=== PATIENT | male | born 1950 | race Caucasian/White ===

== ENCOUNTER → 2016-07-26 | Outpatient (CLI) | payer OTHER ==
[~2016-07-26] MED LIST: ASPCH81X PO; CHOL400C10 PO; CLOP1TAB15 PO; CLX20 PO; FLUT0.15 NAE; LISI-461 PO; LISI40TA PO; LPRUNK PO; MAGN250T22 PO; MULTCHW PO; MXZUNK PO; OMEG10007 PO; POTA10CA28 PO; SIMV20TA2 PO; SIMVASTATIN PO; TAMS0.4C38 PO; UNABLE; VITAMIN D PO
[2016-07-31 10:25] LABS: O&P SOURCE OTHER-TOTAL
== END | disposition home or self-care (01) ==
LOC: C.LAB 09:21
PROVIDERS: ATTEND Internal Medicine
DX: R19.7 Diarrhea, unspecified (principal)

== ENCOUNTER → 2016-08-29 | Outpatient (CLI) | payer OTHER ==
--- NOTE | 2016-08-29 08:48 | DIAGNOSTIC IMAGING REPORT ---
MRI OF THE BRAIN WITHOUT CONTRAST CLINICAL HISTORY: Lightheadedness. Decreased hearing. History of cerebrovascular accident. COMPARISON STUDY: MRI of the brain July 21, 2012. TECHNIQUE: Utilizing a 1.5 Ashlie magnet and dedicated coil, multiplanar, multiecho imaging of the brain was performed without IV contrast. FINDINGS: There are no areas of restricted diffusion. No acute intracranial hemorrhage, midline shift or mass effect is present. Moderate atrophy is noted. Numerous white matter T2 hyperintense foci have minimally progressed since prior exam and suggest small vessel disease. The basilar cisterns are patent. There are no extra-axial collections. Flow-voids for the major intracranial vessels are present. There is mild mucosal thickening of the left maxillary sinus. No intracranial masses are identified on this unenhanced exam. IMPRESSION: 1. No acute intracranial findings. 2. Moderate small vessel disease and cerebral atrophy. 3. No intracranial mass identified on unenhanced exam. Electronically signed by: Jr Chavez M.D. 08/29/2016 8:46 AM Dictated Date/Time: 08/29/2016 8:40 AM
== END | disposition home or self-care (01) ==
LOC: C.MRI 08:02
PROVIDERS: ATTEND Internal Medicine
DX: I67.9 Cerebrovascular disease, unspecified (principal); H91.90 Unspecified hearing loss, unspecified ear; R42 Dizziness and giddiness; R90.89 Other abnormal findings on diagnostic imaging of central nervous system; R41.89 Other symptoms and signs involving cognitive functions and awareness

== ENCOUNTER → 2016-11-11 | Outpatient (CLI) | payer OTHER ==
[2016-11-11 09:35] LABS: BASO % 0.3 %; BASO ABS # 0.02 K/uL (0-0.2); COMPLETE YES; EOS % 2.8 %; HEMATOCRIT 43.9 % (42-52); IG% 0.3 %; LYMPH ABS # 1.57 K/uL (1.2-3.4); MEAN CELL VOLUME 86.4 fL (80-100); MEAN CORPUSCULAR HEMOGLOBIN 29.5 pg (25-34); MEAN CORPUSCULAR HGB CONC 34.2 g/dl (32-36); MEAN PLATELET VOLUME 10.5 fL (7.4-10.4); MONO % 6.9 %; NEUT % 67.7 %; PLATELET COUNT 157 K/uL (130-400); RED BLOOD COUNT 5.08 M/uL (4.7-6.1); WHITE BLOOD COUNT 7.13 K/uL (4.8-10.8)
[2016-11-11 10:09] LABS: ALB/GLOB RATIO 1.1 (0.9-2); ALKALINE PHOSPHATASE 68 U/L (45-117); ALT/SGPT 28 U/L (12-78); AST/SGOT 19 U/L (15-37); BLOOD UREA NITROGEN 17 mg/dl (7-18); BUN/CREATININE RATIO 15.3 (10-20); CARBON DIOXIDE 29 mmol/L (21-32); CHLORIDE 108 mmol/L (98-107); CHOLESTEROL 111 mg/dl (0-200); CHOLESTEROL/HDL RATIO 2.9; GLUCOSE 120 mg/dl (70-99); HDL CHOLESTEROL 38 mg/dl; LDL CHOLESTEROL CALCULATED 41 mg/dl; POTASSIUM 3.3 mmol/L (3.5-5.1); SODIUM 145 mmol/L (136-145); TRIGLYCERIDES 160 mg/dl (0-150); VERY LOW DENSITY LIPOPROT CALC 32 mg/dl
[2016-11-11 10:16] LABS: CALCIUM 9.7 mg/dl (8.5-10.1)
[2016-11-11 10:22] LABS: ESTIMATED AVERAGE GLUCOSE 117 mg/dl; HA1C FLAG Normal (Normal)
[2016-11-11 11:09] LABS: RATIO 1465.5 mcg/mg (0-30.0)
== END | disposition home or self-care (01) ==
LOC: C.LAB1850 08:26
PROVIDERS: ATTEND Internal Medicine
DX: E11.9 Type 2 diabetes mellitus without complications (principal); E53.8 Deficiency of other specified B group vitamins; E55.9 Vitamin D deficiency, unspecified; I10 Essential (primary) hypertension; R97.20 Elevated prostate specific antigen [PSA]; N40.1 Benign prostatic hyperplasia with lower urinary tract symptoms

== ENCOUNTER 2017-01-15 09:36 | Emergency (ER) | payer OTHER ==
[~2017-01-15] VITALS: Ht 172.7 cm; Wt 91.0 kg
[~2017-01-15 09:36] MED LIST changes: -ASPCH81X PO; -CHOL400C10 PO; -FLUT0.15 NAE; -LISI40TA PO; -MAGN250T22 PO; -MULTCHW PO; -OMEG10007 PO; -POTA10CA28 PO; -SIMVASTATIN PO; -TAMS0.4C38 PO; -VITAMIN D PO
[2017-01-15 09:45] VITALS: TEMP 36.7; Ht 172.7 cm; Wt 91.0 kg
[2017-01-15 10:23] LABS: URINE APPEARANCE CLEAR (CLEAR); URINE BILIRUBIN NEG (NEG); URINE COLOR YELLOW; URINE NITRITE NEG (NEG); URINE PH 5.5 (4.5-7.5); URINE SPECIFIC GRAVITY 1.016 (1.000-1.030); UROBILINOGEN NEG (NEG); ZZURINE CULT IF INDIC CATH NO
[2017-01-15 10:30] LABS: MANUAL MICROSCOPIC REQUIRED? NO; REVIEW REQ? NO
[2017-01-15] MEDS ORDERED: ASPCH81X PO (11:47)
[2017-01-15] MEDS ORDERED: LISI40TA PO (11:47)
[2017-01-15] MEDS ORDERED: MULTCHW PO (11:47)
[2017-01-15] MEDS ORDERED: TAMS0.4C38 PO (11:47)
[2017-01-15] MEDS ORDERED: OMEG10007 PO (11:47)
[2017-01-15] MEDS ORDERED: POTA10CA28 PO (11:47)
[2017-01-15] MEDS ORDERED: FLUT0.15 NAE (11:47)
[2017-01-15] MEDS ORDERED: MAGN250T22 PO (11:47)
[2017-01-15] MEDS ORDERED: CHOL400C10 PO (11:47)
[2017-01-15 12:00] VITALS: PULSE 78
[2017-01-15 12:58] VITALS: BP 122/78; O2SAT 98
--- NOTE | 2017-01-15 16:51 | EMERGENCY ROOM VISIT NOTE ---
History Report prepared by Marcio: Anika Kuhn Under the Supervision of: Carlos MinorO. First contact with patient: 09:48 Chief Complaint: UNABLE TO VOID Stated Complaint: FULL BLADDER- UNABLE TO URINATE History of Present Illness The patient is a 66 year old male who presents to the Emergency Room with complaints of constant urinary symptoms beginning at 5am today. The patient states that he has been unable to urinate since he woke up this morning. He is complaining of suprapubic abdominal pressure and discomfort. He rates his pain as a 7/10 in severity. The patient was able to urinate last night before he went to bed. He has a history of an enlarged prostate. Pt denies headache, change in vision, fevers, chest pain, shortness of breath, nausea, vomiting, and diarrhea. Source of History: patient Onset: early today Position: other (bladder) Symptom Intensity: 7/10 Quality: pressure Timing: constant Associated Symptoms: No fevers, No headache, No chest pain, No SOB, No nausea, No vomiting, No melena, No diarrhea Review of Systems See HPI for pertinent positives & negatives. A total of 10 systems reviewed and were otherwise negative. Past Medical & Surgical Medical Problems: (1) Benign hypertension (2) Benign prostatic hyperplasia with lower urinary tract symptoms (3) Chronic kidney disease, stage I Family History Diabetes mellitus FH: heart disease Social History Smoking Status: Never Smoker Marital Status: single Occupation Status: employed Current/Historical Medications Scheduled Aspirin (Aspirin Chewable), 81 MG PO DAILY Cholecalciferol (Vitamin D 400), 800 MG PO DAILY Fish Oil ([place]-3), 1 CAP PO DAILY Fluticasone Propionate (Nasal) (Flonase Allergy Relief), 1 SPRAY HILARY DAILY Lisinopril (Zestril), 40 MG PO DAILY Magnesium Oxide (Magnesium), 1 TAB PO DAILY Multiple Vitamins W/ Minerals (Centrum Silver), 1 TAB PO DAILY Potassium Chloride (Micro-K Ext Rel), 10 MEQ PO DAILY Tamsulosin Hcl (Flomax), 0.4 MG PO BID Allergies Coded Allergies: Sulfa Drugs (Verified Allergy, Unknown, 01/15/17) Metformin (Unverified Adverse Reaction, Unknown, "GIVES ME GAS", 01/15/17) Physical Exam Vital Signs Date Time Temp Pulse Resp B/P (MAP) Pulse Ox O2 Delivery O2 Flow Rate FiO2 8/24/17 12:58 20 122/78 98 01/15/17 12:00 78 18 124/76 99 Room Air 01/15/17 11:00 72 20 120/78 99 Room Air 01/15/17 09:45 36.7 84 20 176/108 Room Air Physical Exam GENERAL: alert, laying in bed, disheveled appearing, well nourished, moderate distress, non-toxic, holding lower abdomen EYE EXAM: normal conjunctiva OROPHARYNX: no exudate, no erythema, lips, buccal mucosa, and tongue normal and mucous membranes are moist NECK: supple, no nuchal rigidity, no adenopathy, non-tender LUNGS: Clear to auscultation. Normal chest wall mechanics HEART: no murmurs, S1 normal and S2 normal ABDOMEN: abdomen soft, fullness in suprapubic region/minimal tenderness, normo- active bowel sounds, no masses, no rebound or guarding. Old midline abdominal incision. SKIN: no rashes and no bruising UPPER EXTREMITIES: upper extremities are grossly normal. LOWER EXTREMITIES: No pitting edema. NEURO EXAM: Normal sensorium, cranial nerves II-XII grossly intact, normal speech, no gross weakness of arms, no gross weakness of legs. Medical Decision & Procedures Laboratory Results Test 01/15/17 10:05 Urine Color YELLOW Urine Appearance CLEAR (CLEAR) Urine pH 5.5 (4.5-7.5) Urine Specific [place] 1.016 (1.000-1.030) Urine Protein 3+ (NEG) Urine Glucose (UA) NEG (NEG) Urine Ketones NEG (NEG) Urine Occult Blood 2+ (NEG) Urine Nitrite NEG (NEG) Urine Bilirubin NEG (NEG) Urine Urobilinogen NEG (NEG) Urine Leukocyte Esterase NEG (NEG) Urine WBC (Auto) 1-5 /hpf (0-5) Urine RBC (Auto) 10-30 /hpf (0-4) Urine Hyaline Casts (Auto) 1-5 /lpf (0-5) Urine Epithelial Cells (Auto) 5-10 /lpf (0-5) Urine Bacteria (Auto) NEG (NEG) Laboratory results per my review. ED Course ED COURSE: Vital signs were reviewed and showed hypertension. The patients medical record was reviewed The above diagnostic studies were performed and reviewed. ED treatments and interventions as stated above. 0948: The patient was evaluated in room C6. A complete history and physical examination was performed. 1112: I reassessed the patient. He has had 1400 mls of urine drained and feels back to his baseline. 1220: Upon reevaluation, the patient is resting comfortably. I discussed my findings with the patient and he understands and agrees with the treatment plan. Based on the patients age, coexisting illnesses, exam and lab findings the decision to treat as an outpatient was made. The patient remained stable while under my care. The patient appeared well at the time of discharge. 1223: I spoke with Lupe Vivar PA-C of urology. We discussed the patient's case and she is in agreement with the treatment plan and will follow-up in the office as an outpatient. Medical Decision Differential diagnoses includes but is not limited to gastritis, peptic ulcer disease, GERD, gallbladder disease, pancreatitis, small bowel obstruction, acute coronary syndrome, pericarditis, ischemic bowel, irritable bowel disease, irritable bowel syndrome, appendicitis, diverticulitis, malignancy, hernia, urinary tract infection, torsion, perforation, trauma, infectious. Patient is a 66-year-old male who presents the ER with inability to void for the past several hours. He has had this intermittently before and generally resolves with walking. Bladder scan shows a full bladder. Arroyo was inserted and 1400 MLS was removed in a stepwise fashion. UA was negative. Patient was discharged with Arroyo in place at his baseline feeling significantly better. Discussed with urology and Lupe Vivar will follow up on him. Discussed with Pt concerning signs and symptoms to watch out for. Pt was instructed to follow up with their PCP and discussed with the patient their option to return to the ED at anytime for persistent or worsening symptoms. The appropriate anticipatory guidance and out-patient management, including indications for return to the emergency department, were explained at length to the patient and understood. Medication Reconcilliation Current Medication List: was personally reviewed by me Blood Pressure Screening Patient's blood pressure: Elevated blood pressure Blood pressure disposition: Elevated BP felt to be situational Consults Time Called: 1219 Consulting Physician: Lupe Vivar PA-C Returned Call: 1223 I spoke with Lupe Vivar PA-C of urology. We discussed the patient's case and she is in agreement with the treatment plan and will follow-up in the office as an outpatient. Impression Primary Impression: Urinary retention Scribe Attestation The scribe's documentation has been prepared under my direction and personally reviewed by me in its entirety. I confirm that the note above accurately reflects all work, treatment, procedures, and medical decision making performed by me. Departure Information Dispostion Home / Self-Care Referrals RV. Arana MD (PCP) Joel Farah M.D. Forms HOME CARE DOCUMENTATION FORM, IMPORTANT VISIT INFORMATION, WORK / SCHOOL INSTRUCTIONS Patient Instructions ED Retention Urinary Male, My [facility] Additional Instructions Please follow up with your primary care doctor or if you are a student, [facility] with in the next 24 hours. Any worsening of your symptoms, please return to the ED immediately. This includes any fevers greater than 100.4, recurrence of pain, unable to void, not draining catheter or any other concerning signs or symptoms from your standpoint. You were found to have a blood pressure greater than 120 systolic over 90 diastolic. Due to the new Medicare guidelines, we are now recommending that you follow up with your primary care doctor in regards to this elevated blood pressure. Please follow up with urology within the next 3 days. He should also follow with your primary care doctor within 3 days as well.
[2017-02-02] MEDS ORDERED: VITAMIN D PO (09:06)
[2017-02-02] MEDS ORDERED: SIMVASTATIN PO (09:06)
== END 2017-01-15 13:05 | disposition home or self-care (01) ==
LOC: C.EDB 09:37 → C.EDC 13:05
DX: N40.1 Benign prostatic hyperplasia with lower urinary tract symptoms (principal); R33.8 Other retention of urine; N18.1 Chronic kidney disease, stage 1; I12.9 Hypertensive chronic kidney disease with stage 1 through stage 4 chronic kidney disease, or unspecified chronic kidney disease; Z83.3 Family history of diabetes mellitus; Z79.82 Long term (current) use of aspirin; Z79.899 Other long term (current) drug therapy

== ENCOUNTER → 2017-02-03 | Outpatient (CLI) | payer OTHER ==
[~2017-02-03] MED LIST changes: +ASPCH81X PO; -CLOP1TAB15 PO; -CLX20 PO; +FLUT0.15 NAE; -LISI-461 PO; +LISI40TA PO; -LPRUNK PO; +MAGN250T22 PO; +MULTCHW PO; -MXZUNK PO; +OMEG10007 PO; +POTA10CA28 PO; -SIMV20TA2 PO; +SIMVASTATIN PO; +TAMS0.4C38 PO; -UNABLE; +VITAMIN D PO
== END | disposition home or self-care (01) ==
LOC: C.LABSPEC 16:58
PROVIDERS: ATTEND Nurse Practitioner Family
DX: N40.1 Benign prostatic hyperplasia with lower urinary tract symptoms (principal); R33.9 Retention of urine, unspecified

== ENCOUNTER → 2017-02-06 | Day surgery (SDC) | payer OTHER ==
[2017-02-02 09:07] VITALS: Ht 174 cm; Wt 90.9 kg
[~2017-02-06] VITALS: Ht 174 cm; Wt 90.9 kg
[~2017-02-06] MED LIST changes: +LIDOCAINE HCL 2% 2 ML VIAL (20MG/ML) ONE; +PROPOFOL IV EMULSION 10 MG/ML 20 ML VIAL IV ONE
--- NOTE | 2017-02-06 09:05 | Endo History and Physical ---
History & Physical Date of Service: Feb 06, 2017. Chief Complaint: Chronic diarrhea Referring Physician: Dr. Kim History of Present Illness 66 yo CM who presents for colonoscopy secondary to chronic diarrhea. Past Surgical History Hx Cardiac Surgery: No Hx Internal Defibrillator: No Hx Pacemaker: No Hx Abdominal Surgery: Yes (ALBERTINA, COLON RESECTION WITH COLOSTOMY/REVERSAL) Hx of Implantable Prosthesis: No Hx Post-Op Nausea and Vomiting: No Hx Cancer Surgery: No Hx Thoracic Surgery: No Hx Orthopedic: No Hx Urinary Tract Surgery: No Family History None Social History Smoking Status: Never Smoker Hx Substance Use: No Hx Alcohol Use: Yes (OCCASIONALLY) Allergies Coded Allergies: Metformin (Verified Adverse Reaction, Unknown, "GIVES ME GAS", 02/06/17) Current Medications Reported Home Medications Medications Dose Route/Sig Max Daily Dose Days Date Category [Simvastatin] 1 Tab PO QAM 02/02/17 Reported [Vitamin D] 1 Tab PO QAM 02/02/17 Reported Magnesium (Magnesium Oxide) Unknown Strength Tab 1 Tab PO QAM 01/15/17 Reported Flomax (Tamsulosin Hcl) 0.4 Mg Cap 0.4 Mg PO BID 01/15/17 Reported Micro-K Ext Rel (Potassium Chloride) 10 Meq Capcr 10 Meq PO QAM 01/15/17 Reported [place]-3 (Fish Oil) 1 Ea Cap 1 Cap PO QAM 01/15/17 Reported Zestril (Lisinopril) 40 Mg Tab 40 Mg PO QAM 01/15/17 Reported Flonase Allergy Relief (Fluticasone Propionate (Nasal)) 50 Mcg/Act Spr 1 [place] HILARY DAILY 01/15/17 Reported Centrum Silver (Multiple Vitamins W/ Minerals) 1 Chw Chw 1 Tab PO QAM 01/15/17 Reported Aspirin Chewable (Aspirin) 81 Mg Chew 81 Mg PO QAM 01/15/17 Reported Vital Signs Weight (Kilograms): 90.91 Height (Feet): 5 Height (Inches): 8.5 Physical Exam General Appearance: WD/WN, no apparent distress Respiratory/Chest: Auscultation: breath sounds normal Cardiovascular: Heart Auscultation: RRR Abdomen: Bowel Sounds: normal Inspection & Palpation: soft, non-distended, no tenderness, guarding & rebound Assessment and Plan Assessment: 66 yo CM who presents for colonoscopy secondary to chronic diarrhea. Plan: Proceed with colonoscopy.
--- NOTE | 2017-02-06 09:46 | Discharge Instructions ---
Endoscopy Patient Instructions Date / Procedure(s) Performed Feb 06, 2017. Colonoscopy Allergy Information Coded Allergies: Metformin (Verified Adverse Reaction, Unknown, "GIVES ME GAS", 02/06/17) Discharge Date / Findings Feb 06, 2017. Proctitis s/p biopsies Random colon biopsies Medication Instructions Stopped Medication(s): Patient said he can't remember. Patient took nothing but his flonase today. OK to resume all medications today as prescribed Reported Home Medications Medications Dose Route/Sig Max Daily Dose Days Date Category [Simvastatin] 1 Tab PO QAM 02/02/17 Reported [Vitamin D] 1 Tab PO QAM 02/02/17 Reported Magnesium (Magnesium Oxide) Unknown Strength Tab 1 Tab PO QAM 01/15/17 Reported Flomax (Tamsulosin Hcl) 0.4 Mg Cap 0.4 Mg PO BID 01/15/17 Reported Micro-K Ext Rel (Potassium Chloride) 10 Meq Capcr 10 Meq PO QAM 01/15/17 Reported [place]-3 (Fish Oil) 1 Ea Cap 1 Cap PO QAM 01/15/17 Reported Zestril (Lisinopril) 40 Mg Tab 40 Mg PO QAM 01/15/17 Reported Flonase Allergy Relief (Fluticasone Propionate (Nasal)) 50 Mcg/Act Spr 1 [place] HILARY DAILY 01/15/17 Reported Centrum Silver (Multiple Vitamins W/ Minerals) 1 Chw Chw 1 Tab PO QAM 01/15/17 Reported Aspirin Chewable (Aspirin) 81 Mg Chew 81 Mg PO QAM 01/15/17 Reported Provider Instructions Activity Restrictions - No exercising or heavy lifting for 24 hours. - Do not drink alcohol the day of the procedure. - Do not drive a car or operate machinery until the day after the procedure. - Do not make any important decisions or sign important papers in 24 hours after the procedure. Following Day: - Return to full activity which may include returning to work/school. Diet Start your diet with liquids and light foods (jello, soup, juice, toast). Then eat your usual diet if not nauseated. Treatment For Common After Affects For mild abdominal pain, bloating, or excessive gas: - Rest - Eat lightly - Lie on right side Follow-Up Information Follow-up with Dr. Arana as scheduled Anesthesia Information What You Should Know You have had a procedure that required some medicine to reduce anxiety and discomfort. This treatment is called moderate sedation. After receiving the treatment, you may be sleepy, but you will be able to breathe on your own. The effects of the treatment may last for several hours. Follow these instructions along with Activity/Diet recommendations noted above: * Do NOT do anything where dizziness or clumsiness would be dangerous. * Rest quietly at home today, then you can be up and about tomorrow. * Have a responsible person stay with you the rest of today. * You may have had an I.V. today. If so, you may take the dressing off later today. Recommendations Call your doctor if: * Trouble breathing * Continuous vomiting for more than 24 hours * Temperature above 101 degrees * Severe abdominal pain or bloating * Pain not relieved by pain medicine ordered * There is increased drainage or redness from any incision * A large amount of rectal bleeding greater than 2-3 tablespoons. (If you had a polyp/s removed or have hemorrhoids, a small amount of blood - from the rectum is to be expected.) * You have any unanswered questions or concerns. IN THE EVENT OF A SERIOUS EMERGENCY, GO TO THE NEAREST EMERGENCY ROOM Your discharge instructions were prepared by provider Miles Carbajal. Patient Instructions Signature Page Farrukh Mancia Patient (or Guardian) Signature/Date: I have read and understand the instructions given to me by my caregivers. Caregiver/RN/Doctor Signature/Date: The above-named patient and/or guardian has received patient instructions on this date. + Original Patient Signature Page (only) stays with chart. Please make copy for patient.
--- NOTE | 2017-02-06 09:59 | GI REPORT ---
Procedure Date: 02/06/2017 9:24 AM Procedure: Colonoscopy Indications: Chronic diarrhea Medicines: Monitored Anesthesia Care Complications: No immediate complications. Estimated Blood Loss: Estimated blood loss: none. Procedure: Pre-Anesthesia Assessment: - Prior to the procedure, a History and Physical was performed, and patient medications and allergies were reviewed. The patient's tolerance of previous anesthesia was also reviewed. The risks and benefits of the procedure and the sedation options and risks were discussed with the patient. All questions were answered, and informed consent was obtained. Prior Anticoagulants: The patient has taken aspirin, last dose was 7 days prior to procedure. ASA Grade Assessment: III - A patient with severe systemic disease. After reviewing the risks and benefits, the patient was deemed in satisfactory condition to undergo the procedure. After I obtained informed consent, the scope was passed under direct vision. Throughout the procedure, the patient's blood pressure, pulse, and oxygen saturations were monitored continuously. The scope was introduced through the anus and advanced to the terminal ileum. The colonoscopy was performed without difficulty. The patient tolerated the procedure well. The quality of the bowel preparation was good. The terminal ileum, ileocecal valve, appendiceal orifice, and rectum were photographed. Findings: Several random biopsies were obtained with cold forceps for histology in the sigmoid colon, in the descending colon, in the transverse colon, in the ascending colon and in the cecum. There was evidence of a prior end-to-side colo-colonic anastomosis in the sigmoid colon. This was patent and was characterized by healthy appearing mucosa. The anastomosis was traversed. Localized mild inflammation characterized by erosions was found in the rectum. Biopsies were taken with a cold forceps for histology. Impression: - Patent end-to-side colo-colonic anastomosis, characterized by healthy appearing mucosa. - Localized mild inflammation was found in the rectum secondary to proctitis. Biopsied. - Several random biopsies were obtained in the sigmoid colon, in the descending colon, in the transverse colon, in the ascending colon and in the cecum. Recommendation: - Resume previous diet. - Continue present medications. - Repeat colonoscopy for surveillance based on pathology results. - Return to primary care physician as previously scheduled. Miles Carbajal DO 02/06/2017 9:59:01 AM This report has been signed electronically. Note Initiated On: 02/06/2017 9:24 AM I attest to the content of the Intraoperative Record and orders documented therein, exceptions below
--- NOTE | 2017-02-06 10:00 | Anesthesiology Progress Note ---
Anesthesia Post Op Note Date & Time Feb 06, 2017 at 10:00 Vital Signs Pain Intensity: 0 Vital Signs Past 12 Hours Date Time Temp Pulse Resp B/P (MAP) Pulse Ox O2 Delivery O2 Flow Rate FiO2 02/06/17 09:47 69 12 146/90 (108) 98 Room Air 02/06/17 09:08 36.6 72 20 183/90 (121) 97 Room Air Notes Mental Status: alert / awake / arousable, participated in evaluation Pt Amnestic to Procedure: Yes Nausea / Vomiting: adequately controlled Pain: adequately controlled Airway Patency, RR, SpO2: stable & adequate BP & HR: stable & adequate Hydration State: stable & adequate Anesthetic Complications: no major complications apparent
[2017-02-06 10:17] VITALS: BP 172/91; PULSE 64; O2SAT 98
== END | disposition home or self-care (01) ==
LOC: C.GI 08:50
PROVIDERS: ATTEND Internal Medicine
DX: R19.7 Diarrhea, unspecified (principal); K52.9 Noninfective gastroenteritis and colitis, unspecified; K62.89 Other specified diseases of anus and rectum; Z79.899 Other long term (current) drug therapy; Z79.82 Long term (current) use of aspirin

== ENCOUNTER → 2017-04-08 | Outpatient (CLI) | payer OTHER ==
[~2017-04-08] MED LIST changes: -LIDOCAINE HCL 2% 2 ML VIAL (20MG/ML) ONE; -PROPOFOL IV EMULSION 10 MG/ML 20 ML VIAL IV ONE
[2017-04-08 15:42] LABS: HEMATOCRIT 33.9 % (42-52); MEAN CELL VOLUME 88.5 fL (80-100); MEAN CORPUSCULAR HEMOGLOBIN 30.8 pg (25-34); MEAN CORPUSCULAR HGB CONC 34.8 g/dl (32-36); MEAN PLATELET VOLUME 9.7 fL (7.4-10.4); PLATELET COUNT 144 K/uL (130-400); RED BLOOD COUNT 3.83 M/uL (4.7-6.1); WHITE BLOOD COUNT 5.85 K/uL (4.8-10.8)
[2017-04-08 16:23] LABS: THYROID STIMULATING HORMONE 1.35 uIu/ml (0.300-4.500)
[2017-04-08 17:25] LABS: ESTIMATED AVERAGE GLUCOSE 157 mg/dl; HA1C FLAG Normal (Normal)
== END | disposition home or self-care (01) ==
LOC: C.LAB1850 14:46
PROVIDERS: ATTEND Physician Assistant
DX: R97.20 Elevated prostate specific antigen [PSA] (principal); N18.1 Chronic kidney disease, stage 1; N40.1 Benign prostatic hyperplasia with lower urinary tract symptoms; Z12.11 Encounter for screening for malignant neoplasm of colon; I67.9 Cerebrovascular disease, unspecified; E11.9 Type 2 diabetes mellitus without complications; R53.81 Other malaise

== ENCOUNTER → 2017-06-30 | Outpatient (CLI) | payer OTHER ==
[2017-06-30 16:11] LABS: BLOOD UREA NITROGEN 21 mg/dl (7-18); CREATININE 1.26 mg/dl (0.60-1.40)
== END | disposition home or self-care (01) ==
LOC: C.LAB1850 14:08
PROVIDERS: ATTEND Urology
DX: R97.20 Elevated prostate specific antigen [PSA] (principal)

== ENCOUNTER 2017-07-29 06:10 | Emergency (ER) | payer OTHER ==
[~2017-07-29] VITALS: Ht 172.7 cm; Wt 73.6 kg
[2017-07-29 06:13] VITALS: TEMP 36.4; Ht 172.7 cm; Wt 73.6 kg
[2017-07-29] MEDS ORDERED: FINA5TAB PO (06:33)
[2017-07-29] MEDS ORDERED: GLIM2TAB2 PO (06:34)
[2017-07-29] MEDS ORDERED: MESA1.2T PO (06:35)
[2017-07-29] MEDS ORDERED: METF500T5 PO (06:35)
[2017-07-29] MEDS ORDERED: MIRA1TAB3 PO (06:37)
[2017-07-29] MEDS ORDERED: CHOL400C PO (06:38)
[2017-07-29] MEDS ORDERED: LIDOCAINE HCL 2% JELLY 30 ML TUBE EXT ONE (07:01)
--- NOTE | 2017-07-29 08:25 | EMERGENCY ROOM VISIT NOTE ---
History Report prepared by Marcio: Anika Kuhn Under the Supervision of: Dr. Logan De La Rosa D.O. First contact with patient: 06:53 Chief Complaint: URINARY SYMPTOMS Stated Complaint: UNABLE TO PEE Nursing Triage Summary: Pt reports that he has not voided since 2300. pt had a scope to check his prostate on thursday and is scheduled for an MRI next week. hx enlarged prostate. pt reports that he attempted to cath at home and it was bloody. History of Present Illness The patient is a 66 year old male who presents to the Emergency Room with complaints of worsening urinary symptoms for the past 8 hours. He reports that he has been unable to void since 2300 yesterday. He has felt like he needed to urinate since about 0200 today. He attempted to self catheterize at home this morning for the first time. He states that all he got out was bright red blood and did not drain any urine. The patient rates his current pain as an 8/10 in severity. He had a scope two days ago by Dr. Farah of urology to check his prostate. The patient has a history of an enlarged prostate. He is scheduled for an MRI next week. 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 A total of 10 systems reviewed and were otherwise negative. Past Medical & Surgical Medical Problems: (1) Benign hypertension (2) Benign prostatic hyperplasia with lower urinary tract symptoms (3) Chronic kidney disease, stage I Family History Diabetes mellitus FH: heart disease Social History Smoking Status: Never Smoker Marital Status: single Occupation Status: employed Current/Historical Medications Scheduled Aspirin (Aspirin Chewable), 81 MG PO QAM Cholecalciferol (Vitamin D3 400), 800 UNIT PO DAILY Finasteride (Proscar), 5 MG PO DAILY Fish Oil ([place]-3), 1 CAP PO QAM Fluticasone Propionate (Nasal) (Flonase Allergy Relief), 1 SPRAY HILARY BID Glimepiride (Glimepiride), 2 MG PO BID Lisinopril (Zestril), 40 MG PO QAM Mesalamine (Lialda), 2 TAB PO BID Metformin Hcl Er (Glucophage Er), 500 MG PO BID Mirabegron (Myrbetriq Er), 50 MG PO DAILY Multiple Vitamins W/ Minerals (Centrum Silver), 1 TAB PO QAM Potassium Chloride (Micro-K Ext Rel), 10 MEQ PO QAM Tamsulosin Hcl (Flomax), 0.4 MG PO BID Allergies Coded Allergies: Metformin (Verified Adverse Reaction, Unknown, "GIVES ME GAS", 02/06/17) Physical Exam Vital Signs Date Time Temp Pulse Resp B/P (MAP) Pulse Ox O2 Delivery O2 Flow Rate FiO2 07/29/17 08:57 90 18 186/103 97 07/29/17 06:13 36.4 70 20 190/87 96 Room Air Physical Exam CONSTITUTIONAL/VITAL SIGNS: Reviewed / noted above. GENERAL: Non-toxic in appearance. INTEGUMENTARY: Warm, dry, and [place]. HEAD: Normocephalic. EYES: without scleral icterus or trauma. ENT/OROPHARYNX: clear and moist. LYMPHADENOPATHY/NECK: Is supple without lymphadenopathy or meningismus. RESPIRATORY: Lungs clear and equal. CARDIOVASCULAR: Regular rate and rhythm. GI/ABDOMEN: Soft and tenderness over the suprapubic area. No organomegaly or pulsatile mass. No rebound or guarding. Normal bowel sounds. EXTREMITIES: Warm and well perfused. BACK: No CVA tenderness. NEUROLOGICAL: Intact without focal deficits. PSYCHIATRIC: normal affect. MUSCULOSKELETAL: Normally developed with good muscle tone. Medical Decision & Procedures Laboratory Results Test 07/29/17 07:12 Urine Color YELLOW Urine Appearance CLEAR (CLEAR) Urine pH 5.0 (4.5-7.5) Urine Specific [place] 1.011 (1.000-1.030) Urine Protein 3+ (NEG) Urine Glucose (UA) NEG (NEG) Urine Ketones NEG (NEG) Urine Occult Blood 3+ (NEG) Urine Nitrite NEG (NEG) Urine Bilirubin NEG (NEG) Urine Urobilinogen NEG (NEG) Urine Leukocyte Esterase NEG (NEG) Urine WBC (Auto) 1-5 /hpf (0-5) Urine RBC (Auto) >30 /hpf (0-4) Urine Hyaline Casts (Auto) 1-5 /lpf (0-5) Urine Epithelial Cells (Auto) 5-10 /lpf (0-5) Urine Bacteria (Auto) NEG (NEG) Laboratory results as stated above per my review. Procedure Arroyo catheter placement: This was placed for urinary retention. This was placed by myself since the nursing staff was unable to place it. An 18 Mexican coud catheter was placed and the bladder was drained. Lidocaine gel injection into the penis was used prior to the procedure. The patient tolerated the procedure well. ED Course 0653: Previous medical records were reviewed. The patient was evaluated in room A3. A complete history and physical examination was performed. 0701: Lidocaine HCL EXT 0703: At this time I successfully placed a Arroyo catheter. Please see the procedure note for further details. 0751: I reassessed the patient at this time. He is feeling better and resting comfortably. I discussed the results and treatment plan with the patient. I answered all pertaining questions that he had. He expressed understanding and verbalized agreement. The patient will be discharged home. Medical Decision Differential considered: pancreatitis, hepatitis, acute cholecystitis, AAA, UTI , pyelonephritis, kidney stones, appendicitis, diverticulitis, shingles, bowel obstruction, mesenteric ischemia, intussusception,hernia. This is a 66-year-old male who presents to the emergency department with a chief complaint of inability to urinate since around 4 AM this morning. He was recently scoped by Dr. Farah and felt to have an enlarged prostate. This was done on Thursday, 2 days ago. The patient was given a catheter to do self- catheterization in case he was not able to urinate. The patient could not get the catheter in this morning. He came to the ED for evaluation. The nursing staff attempted Arroyo catheter placement but was unable to do so. I placed a coud 18 Mexican Arroyo catheter. The urine that drained was clear and he drained 1 L. The patient was feeling better. Urinalysis did not show infection. There is a small amount of blood. The patient was told the results. He was discharged. The catheter was left in place. He will call Dr. Farah for follow-up. Medication Reconcilliation Current Medication List: was personally reviewed by me Blood Pressure Screening Patient's blood pressure: Elevated blood pressure Blood pressure disposition: Elevated BP felt to be situational Impression Primary Impression: Urinary retention Scribe Attestation The scribe's documentation has been prepared under my direction and personally reviewed by me in its entirety. I confirm that the note above accurately reflects all work, treatment, procedures, and medical decision making performed by me. Departure Information Dispostion Home / Self-Care Referrals RV. Arana MD (PCP) Joel Farah M.D. Patient Instructions ED Catheter Care Dina, My [facility] Additional Instructions Follow-up with Dr. Farah for further evaluation. Call today for a follow-up appointment. Keep Arroyo catheter in place and did not attempt to remove until removed by Dr. Farah. Return for any concerns.
[2017-07-29 08:57] VITALS: BP 186/103; PULSE 90; O2SAT 97
== END 2017-07-29 08:55 | disposition home or self-care (01) ==
LOC: C.EDB 06:11 → C.EDA 08:55
DX: R33.9 Retention of urine, unspecified (principal); I12.9 Hypertensive chronic kidney disease with stage 1 through stage 4 chronic kidney disease, or unspecified chronic kidney disease; N18.1 Chronic kidney disease, stage 1; N40.1 Benign prostatic hyperplasia with lower urinary tract symptoms; Z79.82 Long term (current) use of aspirin; Z83.3 Family history of diabetes mellitus; Z82.49 Family history of ischemic heart disease and other diseases of the circulatory system; Z88.8 Allergy status to other drugs, medicaments and biological substances

== ENCOUNTER 2017-07-31 03:45 | Emergency (ER) | payer OTHER ==
[~2017-07-31] VITALS: Ht 172.7 cm; Wt 89.5 kg
[~2017-07-31 03:45] MED LIST changes: +CHOL400C PO; +FINA5TAB PO; +GLIM2TAB2 PO; -MAGN250T22 PO; +MESA1.2T PO; +METF500T5 PO; +MIRA1TAB3 PO; -SIMVASTATIN PO; -VITAMIN D PO
[2017-07-31 03:48] VITALS: TEMP 36.5; Ht 172.7 cm; Wt 89.5 kg
--- NOTE | 2017-07-31 04:07 | EMERGENCY ROOM VISIT NOTE ---
History Report prepared by Marcio: Roshan Mary Under the Supervision of: Dr. Naga White M.D. First contact with patient: 03:52 Chief Complaint: URINARY SYMPTOMS Stated Complaint: CAN'T PEE History of Present Illness The patient is a 66 year old male who presents to the Emergency Room with complaints of urinary symptoms that began 12 hours ago. He states he had scope done by Dr. Arrieta which revealed that he had a large prostate. He was admitted 2 days ago for urinary retention and had a Lewis placed in the ED. He has had no urinary output for the last 12 hours. He reports diarrhea, abdominal pain, and pain along the shaft of his penis. He denies taking any medication. He denies fevers, nausea, and vomiting. Nothing worsens or alleviates his symptoms. Source of History: patient Onset: 12 hours ago Position: abdomen, pelvis Symptom Intensity: pain rated as 10/10 Quality: other (fullness) Timing: constant Associated Symptoms: + abdominal pain, + diarrhea, + urinary symptoms ( urinary retention for the past 12 hours), No fevers, No nausea, No vomiting Note: Patient reports pain along the shaft of his penis. Review of Systems See HPI for pertinent positives & negatives. A total of 6 systems reviewed and were otherwise negative. Past Medical & Surgical Medical Problems: (1) Benign hypertension (2) Benign prostatic hyperplasia with lower urinary tract symptoms (3) Chronic kidney disease, stage I Family History Diabetes mellitus FH: heart disease Social History Smoking Status: Never Smoker Marital Status: single Occupation Status: employed Current/Historical Medications Scheduled Aspirin (Aspirin Chewable), 81 MG PO QAM Cholecalciferol (Vitamin D3 400), 800 UNIT PO DAILY Ciprofloxacin Hcl (Cipro), 500 MG PO BID Finasteride (Proscar), 5 MG PO DAILY Fish Oil ([place]-3), 1 CAP PO QAM Fluticasone Propionate (Nasal) (Flonase Allergy Relief), 1 SPRAY HILARY BID Glimepiride (Glimepiride), 2 MG PO BID Lisinopril (Zestril), 40 MG PO QAM Mesalamine (Lialda), 2 TAB PO BID Metformin Hcl Er (Glucophage Er), 500 MG PO BID Mirabegron (Myrbetriq Er), 50 MG PO DAILY Multiple Vitamins W/ Minerals (Centrum Silver), 1 TAB PO QAM Potassium Chloride (Micro-K Ext Rel), 10 MEQ PO QAM Tamsulosin Hcl (Flomax), 0.4 MG PO BID Allergies Coded Allergies: Metformin (Verified Adverse Reaction, Unknown, "GIVES ME GAS", 02/06/17) Physical Exam Vital Signs Date Time Temp Pulse Resp B/P (MAP) Pulse Ox O2 Delivery O2 Flow Rate FiO2 07/31/17 10:44 89 16 163/105 94 Room Air 07/31/17 09:06 76 14 153/96 98 Nasal Cannula 2.0 07/31/17 08:12 80 14 168/96 96 Room Air 07/31/17 07:29 80 14 159/105 94 Nasal Cannula 2.0 07/31/17 07:05 80 14 165/93 97 07/31/17 07:00 80 14 158/95 96 07/31/17 06:46 81 07/31/17 06:35 167/96 07/31/17 06:30 80 176/101 96 07/31/17 06:25 80 95 07/31/17 06:20 Nasal Cannula 2.0 07/31/17 06:20 81 183/102 94 Nasal Cannula 2.0 07/31/17 06:15 97 14 182/105 89 Room Air 07/31/17 06:11 202/112 07/31/17 06:10 92 13 96 07/31/17 05:35 95 15 205/112 95 07/31/17 04:50 100 23 95 07/31/17 04:35 95 15 94 07/31/17 04:30 94 12 95 Room Air 07/31/17 04:29 198/109 07/31/17 03:48 36.5 104 18 201/110 97 Room Air Physical Exam GENERAL: Patient is uncomfortable appearing and in mdoerate distress. EYES: No scleral icterus, unremarkable pupils. ENT: Mucous membranes moist, no nasal congestion. NECK: No masses appreciated, no meningismus, trachea is midline. RESPIRATORY: No dyspnea. Clear to auscultation and equal bilaterally. No wheeze , no rhonchi. CARDIOVASCULAR: Regular rate and rhythm. No murmurs, rubs, gallops appreciated. GASTROINTESTINAL: Extensive, old, ventral scarring. Tenderness to palpation with mass at super pubic region. Abdomen soft, no peritonitis. Bowel sounds positive. GENITOURINARY: circumcised male, Lewis in place. Mild purulence around tip of glans. No tenderness to palpation. No erythema. No swelling appreciated. EXTREMITIES: Normal motion all extremities, no cyanosis, no edema. NEUROLOGIC: Alert and oriented, no acute motor or sensory deficits, no focal weakness, cranial nerves grossly intact. SKIN: No rash, no jaundice, no diaphoresis. Medical Decision & Procedures ER Provider Diagnostic Interpretation: STAT RAD RADIOLOGIST READ: Imaging and read reviewed by me: CT ABDOMEN & PELVIS With Contrast: Prior cholecystectomy. Small hiatal hernia. Atherosclerotic changes of the vasculature without aneurysm or dissection. Severe prostatomegaly. Lewis catheter balloon appears to be inflated within the prostate. The Lewis catheter is not within the distended bladder. Gas also noted within the distended bladder. Small fat-containing bilateral inguinal hernias. Anastomotic suture line in the region of the sigmoid colon. Normal appendix. No bowel obstruction or inflammation. Nonspecific mild bilateral perinephric fat stranding. Mild fullness of the renal collecting systems is likely related to distended bladder. Punctate nonobstructing inferior right renal stone. Diffuse idiopathic skeletal hyperostosis. Straightening of the normal lumbar lordosis. Radiologist: Rafael Weinberg M.D. Laboratory Results 07/31/17 05:07 Red Blood Count 5.83, Mean Corpuscular Volume 86.3, Mean Corpuscular Hemoglobin 30.4, Mean Corpuscular Hemoglobin Concent 35.2, Mean Platelet Volume 10.4, Neutrophils (%) (Auto) 72.3, Lymphocytes (%) (Auto) 14.8, Monocytes (%) (Auto) 9.2, Eosinophils (%) (Auto) 2.4, Basophils (%) (Auto) 0.8, Neutrophils # (Auto) 6.26, Lymphocytes # (Auto) 1.28, Monocytes # (Auto) 0.80, Eosinophils # (Auto) 0.21, Basophils # (Auto) 0.07 Test 07/31/17 05:07 07/31/17 05:13 07/31/17 06:50 White Blood Count 8.66 K/uL (4.8-10.8) Red Blood Count 5.83 M/uL (4.7-6.1) Hemoglobin 17.7 g/dL (14.0-18.0) Hematocrit 50.3 % (42-52) Mean Corpuscular Volume 86.3 fL (80-100) Mean Corpuscular Hemoglobin 30.4 pg (25-34) Mean Corpuscular Hemoglobin Concent 35.2 g/dl (32-36) Platelet Count 140 K/uL (130-400) Mean Platelet Volume 10.4 fL (7.4-10.4) Neutrophils (%) (Auto) 72.3 % Lymphocytes (%) (Auto) 14.8 % Monocytes (%) (Auto) 9.2 % Eosinophils (%) (Auto) 2.4 % Basophils (%) (Auto) 0.8 % Neutrophils # (Auto) 6.26 K/uL (1.4-6.5) Lymphocytes # (Auto) 1.28 K/uL (1.2-3.4) Monocytes # (Auto) 0.80 K/uL (0.11-0.59) Eosinophils # (Auto) 0.21 K/uL (0-0.5) Basophils # (Auto) 0.07 K/uL (0-0.2) RDW Standard Deviation 45.1 fL (36.4-46.3) RDW Coefficient of Variation 14.6 % (11.5-14.5) Immature Granulocyte % (Auto) 0.5 % Immature Granulocyte # (Auto) 0.04 K/uL (0.00-0.02) Prothrombin Time 10.1 SECONDS (9.0-12.0) Prothromb Time International Ratio 1.0 (0.9-1.1) Total Bilirubin 2.2 mg/dl (0.2-1) Direct Bilirubin 0.4 mg/dl (0-0.2) Aspartate Amino Transf (AST/SGOT) 15 U/L (15-37) Alanine Aminotransferase (ALT/SGPT) 19 U/L (12-78) Alkaline Phosphatase 124 U/L (45-117) Total Protein 8.1 gm/dl (6.4-8.2) Albumin 3.8 gm/dl (3.4-5.0) Ethyl Alcohol mg/dL < 3.0 mg/dl (0-3) Bedside Hemoglobin 17.0 g/dl (14.0-18.0) Bedside Hematocrit 50 % (42-52) Bedside Sodium 142 mEq/L (135-144) Bedside Potassium 3.1 mEq/L (3.3-5.0) Bedside Chloride 99 mEq/L (101-112) Bedside Total CO2 29 mEq/l (24-31) Anion Gap 18.0 mmol/L (16-25) Bedside Blood Urea Nitrogen 17 mg/dl (7-18) Bedside Creatinine 1.4 mg/dl (0.6-1.3) Bedside Glucose (other) 226 mg/dl (70-99) Bedside Ionized Calcium ([place]) 1.20 mmol/l (1.12-1.32) Urine Color ORANGE Urine Appearance CLOUDY (CLEAR) Urine pH 6.0 (4.5-7.5) Urine Specific [place] 1.022 (1.000-1.030) Urine Protein 3+ (NEG) Urine Glucose (UA) TRACE (NEG) Urine Ketones TRACE (NEG) Urine Occult Blood 3+ (NEG) Urine Nitrite NEG (NEG) Urine Bilirubin NEG (NEG) Urine Urobilinogen NEG (NEG) Urine Leukocyte Esterase TRACE (NEG) Urine WBC (Auto) 5-10 /hpf (0-5) Urine RBC (Auto) >30 /hpf (0-4) Urine Hyaline Casts (Auto) 0 /lpf (0-5) Urine Epithelial Cells (Auto) 10-20 /lpf (0-5) Urine Bacteria (Auto) 2+ (NEG) Laboratory results as reviewed by me. Medications Administered Medications (Trade) Dose Ordered Sig/Andres Route Start Time Stop Time Status Last Admin Dose Admin Hydromorphone HCl (Dilaudid Inj) 1 mg NOW STAT IV 07/31/17 05:55 07/31/17 05:56 DC 07/31/17 06:06 1 MG Labetalol HCl (Normodyne IV) 10 mg NOW STAT IV 07/31/17 05:55 07/31/17 05:56 DC 07/31/17 06:14 10 MG Ciprofloxacin (Cipro Tab) 500 mg NOW STAT PO 07/31/17 06:54 07/31/17 06:55 DC 07/31/17 07:31 500 MG ED Course 0352: The patient was evaluated in room A2. A complete history and physical exam was performed. 0447: I discussed the patient's case with Dr. Gold who suggested a CT of abdomen and pelvis. The patient will be evaluated for further treatment and disposition. 0450: I checked on the patient. He is in the bathroom. He is agreeable to an IV and CT 0555: I checked on the patient and he would like something for pain. 0604: I discussed the patient's case with Dr. Gold. He said to deflate the balloon and gently advance catheter. If unsuccessful, do not inflate balloon and he will be in shortly. 0615: I discussed the patient's case with Stat Rad who notes the Lewis balloon is in a severely enlarged prostate. 0635: We deflated the balloon. We were able to advance the Lewis without any resistance. He immediately put out 1 L of urine. The balloon was reinflated without difficultly and the Lewis easily slid. He states he feels better after pain medication. 0715: Reevaluated the patient. Discussed results and discharge instructions: He verbalized understanding and agreement. The patient is ready for discharge. Medical Decision 66 yr old male arrives for evaluation of urinary retention with no UOP in last 12 hours through his lewis. Known enlarged prostate with scope 5 days ago. Developed retention 2 days later requiring lewis with difficult placement due to his enlarged prostate. Doing well until last evening with no further UOP. Unable to clear with flush. Discussed with Uro who advised ct which revealed balloon in severely enlarged prostate. Discussed with Uro who advised deflating balloon, and gently advancing. Success with this and ~1L bloody UOP. Patient feeling much improved. He did have some hypoxia secondary to Dilaudid he was given earlier and his history of sleep apnea. Dr Sharp in to discuss with patient and advised Cipro 500mg BID x 7 days with Uro follow up and leave lewis in place. I highly advised against walking without lewis bag well attached (patient noted several times just letting it hang out of his penis ). Patient comfortable and in no distress. Will be monitored in ED over next few hours and then discharged with plan reviewed. Quite hypertensive here which is likely secondary to his pain/situation and not having taken his meds this evening/morning. His bili is mildly elevated of uncertain etiology though no clear abnormality RUQ by exam or CT. Advised discussing with his PCP, as well as his HTN recheck. Medication Reconcilliation Current Medication List: was personally reviewed by me Blood Pressure Screening Patient's blood pressure: Elevated blood pressure Blood pressure disposition: Elevated BP felt to be situational Consults Time Called: [phone] Consulting Physician: Dr. Gold- Urology Returned Call: [phone] I discussed the patient's case with Dr. Gold who suggested a CT of abdomen and pelvis. The patient will be evaluated for further treatment and disposition. Additional Consults: Time Called: 05 Consulted Physician: Dr. Gold - Urology Returned Call: [phone] Additional Comments: I discussed the patient's case with Dr. Gold. He said to deflate the balloon and gently advance catheter. If unsuccessful, do not inflate balloon and he will be in shortly. Time Called: [phone] Consulted Physician: Zaki Aguirre Returned Call: [phone] Additional Comments: I discussed the patient's case with Zaki Aguirre who notes the Lewis balloon is in a severely enlarged prostate. Impression Primary Impression: Dislodged Lewis catheter Additional Impressions: Enlarged prostate without urinary obstruction Hypertension Urinary retention Elevated bilirubin Scribe Attestation The scribe's documentation has been prepared under my direction and personally reviewed by me in its entirety. I confirm that the note above accurately reflects all work, treatment, procedures, and medical decision making performed by me. Departure Information Dispostion Home / Self-Care Prescriptions Ciprofloxacin Hcl (CIPRO) 500 Mg Tab 500 MG PO BID, #14 TAB Prov: Naga White M.D. 07/31/17 Referrals RV. Arana MD (PCP) Patient Instructions My [facility] Additional Instructions Continue lewis care and discussed. Do not allow urine bag to dangle or pull on your lewis. Take the entire course of your antibiotic. Return if fevers, vomiting, pain, no urinary output, or other concerns. Your Bilirubin was mildly elevated at 2.2. It is important you discuss this with your primary care provider. Return if confusion, yellowing of eyes/skin or other concerns. Your blood pressure was elevated during this visit. This is quite common in many people who are being evaluated in the Emergency Department for many reasons. However, it is important that you have your Primary Care Provider recheck your blood pressure and discuss whether treatment will be needed. retirement elevated blood pressure can lead to strokes, heart attacks, kidney failure amongst other medical issues. If you develop severe headaches, chest pain, weakness in arms or legs, or other concerning symptoms call 911. Problem Qualifiers
[2017-07-31] MEDS ORDERED: LIDOCAINE HCL 2% JELLY 30 ML TUBE EXT ONE (04:13)
[2017-07-31 05:18] LABS: BASO % 0.8 %; BASO ABS # 0.07 K/uL (0-0.2); EOS % 2.4 %; EOS ABS # 0.21 K/uL (0-0.5); HEMATOCRIT 50.3 % (42-52); HEMOGLOBIN 17.7 g/dL (14.0-18.0); IG# 0.04 K/uL (0.00-0.02); LYMPH % 14.8 %; LYMPH ABS # 1.28 K/uL (1.2-3.4); MEAN CELL VOLUME 86.3 fL (80-100); MEAN CORPUSCULAR HEMOGLOBIN 30.4 pg (25-34); MEAN CORPUSCULAR HGB CONC 35.2 g/dl (32-36); MEAN PLATELET VOLUME 10.4 fL (7.4-10.4); MONO % 9.2 %; NEUT % 72.3 %; NEUT ABS # 6.26 K/uL (1.4-6.5); PLATELET COUNT 140 K/uL (130-400); RED CELL DISTRIBUTION WIDTH CV 14.6 % (11.5-14.5); RED CELL DISTRIBUTION WIDTH SD 45.1 fL (36.4-46.3); WHITE BLOOD COUNT 8.66 K/uL (4.8-10.8)
[2017-07-31 05:26] LABS: ISTAT CREATININE 1.4 mg/dl (0.6-1.3); ISTAT IONIZED CALCIUM 1.2 mmol/l (1.12-1.32); ISTAT POTASSIUM 3.1 mEq/L (3.3-5.0)
[2017-07-31 05:38] LABS: ALBUMIN 3.8 gm/dl (3.4-5.0); TOTAL PROTEIN 8.1 gm/dl (6.4-8.2)
[2017-07-31] MEDS ORDERED: OPTIRAY 320 IV PRN (05:45)
[2017-07-31] MEDS ORDERED: LABETALOL HCL IV 5 MG/ML 20ML IV STA (05:55)
[2017-07-31] MEDS ORDERED: HYDROmorphone INJ 1 MG/ML SYR IV STA (05:55)
[2017-07-31] MEDS ORDERED: CIPROFLOXACIN 500 MG TAB PO STA (06:54)
[2017-07-31] MEDS ORDERED: CIPR-255 PO (07:02)
--- NOTE | 2017-07-31 07:14 | DIAGNOSTIC IMAGING REPORT ---
ABDOMEN AND PELVIS CT WITH IV CONTRAST CT DOSE: 584.46 mGy.cm HISTORY: urinary retention despite catheter placement TECHNIQUE: Multiaxial CT images of the abdomen and pelvis were performed following the use of intravenous contrast. A dose lowering technique was utilized adhering to the principles of ALARA. COMPARISON STUDY: Renal ultrasound 11/10/2011. FINDINGS: Bibasilar linear densities consistent with subsegmental atelectasis. No pneumoperitoneum. No pneumatosis. No suspicious lytic or blastic osseous lesions. A 3 mm hypodense lesion within the left hepatic lobe. This is too small to characterize. Hysterectomy. The spleen, adrenal glands, and pancreas are unremarkable. Subcentimeter retroperitoneal lymph nodes do not meet CT criteria for pathologic involvement. Lobular kidneys demonstrating cortical thinning. Punctate stone within the lower pole of the right kidney. There are single subcentimeter bilateral renal hypodense lesions within the largest on the left measuring 9 mm. These are technically too small to characterize. Mild bilateral hydroureteronephrosis. This appears to be secondary to the severely distended bladder. Small amount of gas within the distended bladder which appears to contain a small urachal diverticulum. The prostate is significantly enlarged measuring up to 8.7 cm in diameter. The balloon of the Arroyo catheter is inflated within the prosthetic urethra. The catheter does not extend into the distended bladder. Anastomotic suture material at the proximal sigmoid colon. No bowel wall thickening or obstruction. Normal appendix. IMPRESSION: 1. The balloon of the Arroyo catheter is located within the prostatic urethra and does not extend into the distended bladder. This likely accounts for the mild hydroureteronephrosis. The balloon should be deflated and the catheter should be advanced into the bladder. 2. The prostate gland is severely enlarged. 3. Right-sided nephrolithiasis. 4. Cholecystectomy. Electronically signed by: Wiley Corona M.D. 07/31/2017 7:12 AM Dictated Date/Time: 07/31/2017 7:06 AM
[2017-07-31 10:44] VITALS: BP 163/105; PULSE 89; O2SAT 94
== END 2017-07-31 11:02 | disposition home or self-care (01) ==
LOC: C.EDB 03:46 → C.EDA 11:02
DX: T83.098A Other mechanical complication of other urinary catheter, initial encounter (principal); Y84.6 Urinary catheterization as the cause of abnormal reaction of the patient, or of later complication, without mention of misadventure at the time of the procedure; N40.0 Benign prostatic hyperplasia without lower urinary tract symptoms; I12.9 Hypertensive chronic kidney disease with stage 1 through stage 4 chronic kidney disease, or unspecified chronic kidney disease; R33.9 Retention of urine, unspecified; R17 Unspecified jaundice; R19.7 Diarrhea, unspecified; R09.02 Hypoxemia; N18.1 Chronic kidney disease, stage 1; Z83.3 Family history of diabetes mellitus; Z79.82 Long term (current) use of aspirin; Z79.899 Other long term (current) drug therapy

== ENCOUNTER 2019-12-13 19:14 | Inpatient (IN) ==
[2019-12-13] MEDS ORDERED: OPTIRAY 320 125ml IV PRN (19:18)
[2019-12-13] MEDS ORDERED: lisinopriL 40 MG TAB PO STA (19:35)
--- NOTE | 2019-12-13 19:45 | CT Scan Report ---
HEAD CT NONCONTRAST CT DOSE: HISTORY: Stroke evaluation TECHNIQUE: Multiaxial CT images of the head were performed without the use of intravenous contrast. A utomated exposure control was utilized for this study. A dose lowering technique was utilized adheri ng to the principles of ALARA. Comparison: Brain MRI 08/29/2016. Head CT 12/11/2009. Findings: The paranasal sinuses and mastoid air cells are clear. The calvarium and skull base are int act. There is no mass, hematoma, midline shift, acute infarct. White matter hypodensity is nonspecifi c but suggestive of moderate microvascular ischemic change. The ventricles and sulci demonstrate mild age-related involutional changes. Impression: No acute intracranial abnormality. Atrophy and microvascular ischemic changes. ACT 112: Negative or not required by law. Electronically signed by: Wiley Corona M.D. 12/13/2019 7:44 PM
[2019-12-13] MEDS ORDERED: LABETALOL HCL IV 5 MG/ML 20ML IV STA (19:48)
--- NOTE | 2019-12-13 19:55 | CT Scan Report ---
HEAD & NECK CTA HISTORY: Stroke evaluation TECHNIQUE: Multiaxial CT images of the head were performed the intravenous administration of contrast to evaluate the major cerebral vessels. Multiaxial CT images of the neck were also performed followi ng the intravenous administration of contrast to evaluate the major cervical vessels. Maximum intensi ty projection images were also obtained. A dose lowering technique was utilized adhering to the princ iplTalon. COMPARISON: None. FINDINGS: Moderate calcified plaque within the bilateral carotid siphons and distal vertebral arteries. Severel y hypoplastic right A1 segment which is likely developmental. The major dural venous sinuses appear p atent. There is also hypoplastic distal right vertebral artery. Focal moderate stenosis within the le ft P2 segment as seen on axial image 100. The remaining distal left IT APPLICATIONS ANALYST is patent. Visualized intracr anial internal carotid arteries, distal vertebral arteries, and basilar artery are widely patent. The re is no significant stenosis, occlusion, or aneurysm seen within the bilateral ACAs, MCAs, or right IT APPLICATIONS ANALYST. The aortic arch and proximal great vessels are widely patent. There is no significant stenosis, occ lusion, or dissection identified within the bilateral common carotid, internal carotid, or vertebral arteries. The right vertebral artery is slightly hypoplastic in comparison to the left. Mild calcifie d plaque seen within the bilateral carotid bifurcations. Bilateral thyroid nodules. Dominant nodule o n the left measures 3.6 cm. IMPRESSION: 1. Focal moderate stenosis within the left P2 segment. Otherwise, no additional areas of stenosis, oc clusion, or aneurysm identified within the [place]. 2. No significant stenosis, occlusion, or dissection identified within the carotid or vertebral arter ies. 3. Multinodular thyroid gland. Dominant nodule on the left measures 3.6 cm. Follow-up nonemergent thy roid ultrasound can be used for further evaluation. ACT 112: Negative or not required by law. Electronically signed by: Wiley Corona M.D. 12/13/2019 7:53 PM
--- NOTE | 2019-12-13 19:55 | CT Scan Report ---
HEAD & NECK CTA HISTORY: Stroke evaluation TECHNIQUE: Multiaxial CT images of the head were performed the intravenous administration of contrast to evaluate the major cerebral vessels. Multiaxial CT images of the neck were also performed followi ng the intravenous administration of contrast to evaluate the major cervical vessels. Maximum intensi ty projection images were also obtained. A dose lowering technique was utilized adhering to the princ iplTalon. COMPARISON: None. FINDINGS: Moderate calcified plaque within the bilateral carotid siphons and distal vertebral arteries. Severel y hypoplastic right A1 segment which is likely developmental. The major dural venous sinuses appear p atent. There is also hypoplastic distal right vertebral artery. Focal moderate stenosis within the le ft P2 segment as seen on axial image 100. The remaining distal left BEHAVIORAL SERVICES TECH is patent. Visualized intracr anial internal carotid arteries, distal vertebral arteries, and basilar artery are widely patent. The re is no significant stenosis, occlusion, or aneurysm seen within the bilateral ACAs, MCAs, or right BEHAVIORAL SERVICES TECH. The aortic arch and proximal great vessels are widely patent. There is no significant stenosis, occ lusion, or dissection identified within the bilateral common carotid, internal carotid, or vertebral arteries. The right vertebral artery is slightly hypoplastic in comparison to the left. Mild calcifie d plaque seen within the bilateral carotid bifurcations. Bilateral thyroid nodules. Dominant nodule o n the left measures 3.6 cm. IMPRESSION: 1. Focal moderate stenosis within the left P2 segment. Otherwise, no additional areas of stenosis, oc clusion, or aneurysm identified within the [place]. 2. No significant stenosis, occlusion, or dissection identified within the carotid or vertebral arter ies. 3. Multinodular thyroid gland. Dominant nodule on the left measures 3.6 cm. Follow-up nonemergent thy roid ultrasound can be used for further evaluation. ACT 112: Negative or not required by law. Electronically signed by: Wiley Corona M.D. 12/13/2019 7:53 PM
[2019-12-13 19:59] LABS: Basophils # (auto) 0.04 K/uL (0-0.2); Basophils % (auto) 0.6 %; Eosinophils # (auto) 0.16 K/uL (0-0.5); Eosinophils % (auto) 2.4 %; Hematocrit (blood only) 44.9 % (42-52); Hemoglobin 15.8 g/dL (14.0-18.0); Immature Granulocytes # (auto) 0.01 K/uL (0.00-0.02); Immature Granulocytes % (auto) 0.1 %; Lymphocytes # (auto) 1.37 K/uL (1.2-3.4); Lymphocytes % (auto) 20.3 %; Mean Corpuscular Hemoglobin 32.8 pg (25-34); Mean Corpuscular Hgb Conc 35.2 g/dL (32-36); Mean Corpuscular Volume 93.3 fL (80-100); Mean Platelet Volume 9.9 fL (7.4-10.4); Monocytes # (auto) 0.46 K/uL (0.11-0.59); Monocytes % (auto) 6.8 %; Neutrophils # (auto) 4.72 K/uL (1.4-6.5); Neutrophils % (auto) 69.8 %; Platelet Count 133 K/uL (130-400); RDW Coefficient of Variation 14.2 % (11.5-14.5); RDW Standard Deviation 48.7 fL (36.4-46.3); Red Blood Count 4.81 M/uL (4.7-6.1); White Blood Count 6.76 K/uL (4.8-10.8)
--- NOTE | 2019-12-13 19:59 | Emergency Department Note ---
History of Present Illness General Chief complaint: Stroke/CVA Symptoms Stated complaint: STROKE SX Source: patient Mode of arrival: EMS History of Present Illness Provider complaint: Left-sided weakness and numbness Onset (ago): day(s) (Started yesterday at 3 PM) Location: upper extremity and left Radiation: non-radiation Severity: moderate Pain Consistency: + constant Quality: + other (Numbness or weakness to the left arm) Relieved By: + none Associated symptoms: no chest pain, no cough, no fever/chills, no headaches, no nausea/vomiting and no shortness of breath This is a 69-year-old male who presents with strokelike symptoms starting at 3 PM yesterday. He states he noticed that his left arm was numb and weak. It has gotten progressively worse and seems to be much worse this morning. It is constant and has never gone away. No alleviating factors. It is not associated with any headache or head injury. He denies any vomiting, trouble swallowing, numbness or weakness in his legs or right upper extremity. He does state that he is has noticed that he is having trouble with his speech. He cannot articulate as he normally does and sound slurred. He denies having trouble finding words. He does take an aspirin daily. He does state that he had to go to the bathroom very quickly and fell onto the ground onto his buttocks. He denies any head injury or injury to his back or hips. He states he did not fall because of weakness to his legs but that he was rushing to the bathroom. Home Medications Home Medications Medication Instructions Recorded Confirmed Type cholecalciferol (vitamin D3) 50 2,000 units PO DAILY #30 cap 02/24/19 12/13/19 History mcg (2,000 unit) capsule fluticasone propionate 50 2 sprays INTRANASAL BID #1 gm 02/24/19 12/13/19 History mcg/actuation nasal spray,suspension hydralazine 50 mg tablet 50 mg PO Q12H #60 tab 11/09/19 12/13/19 Rx lisinopril 40 mg tablet 40 mg PO DAILY #90 tab 11/23/19 12/13/19 Rx cyanocobalamin (vitamin B-12) 1,000 mcg SL DAILY #90 tab 12/02/19 12/13/19 Rx 1,000 mcg sublingual tablet cyanocobalamin (vitamin B-12) 1,000 mcg SQ WK 12/13/19 12/13/19 History Allergies Allergy/AdvReac Type Severity Reaction Status Date / Time No Known Allergies Allergy Verified 12/13/19 20:04 Past Med/Surg History Medical History Benign hypertension Benign prostatic hyperplasia with lower urinary tract symptoms Chronic kidney disease, stage III (moderate) Elevated PSA Nocturnal hypoxemia Obstructive sleep apnea Type 2 diabetes mellitus Ulcerative colitis Surgical History S/P cholecystectomy S/P partial colectomy S/P TURP Family History Father Myocardial infarction Grandfather (Paternal) Myocardial infarction Mother Bipolar disorder Brother Bipolar disorder Sister Bipolar disorder Denies family history of Colon cancer Ovarian cancer Prostate cancer Breast cancer Social History Smoking Status: Never smoker Hx Alcohol Use: No Hx Substance Use: No Preferred Language: Japanese Visual Impairment: No Limitations Hearing Ability: Normal Law Instructor Required: No marital status: Single Current Living Situation: Alone Current Living Situation Comment: Lives with sabina roblero current occupational status: employed 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 and A total of 10 systems reviewed and were otherwise negative Physical Exam Vital Signs Vital Signs - 24 hr 12/13/19 19:30 12/13/19 19:36 12/13/19 20:12 Temperature 36.8 C Temperature Source Oral Pulse Rate 84 86 82 Pulse Rate from SpO2 Sensor 83 Pulse Rhythm Regular Pulse Strength Normal Respiratory Rate 24 19 20 Respiratory Effort / Characteristics Non-Labored Spontaneous Respiratory Depth Normal Respiratory Pattern Regular Blood Pressure 234/133 H 222/125 H 220/123 H Blood Pressure Mean 166 164 133 Blood Pressure Position Lying Pulse Oximetry 95 95 Oxygen Delivery Method Room Air Sepsis Recent Fever Within 48 Hours No Sepsis New/Unexplained Change in Mental Status No Sepsis Action Taken by Nursing No Action Required 12/13/19 20:15 12/13/19 20:21 12/13/19 20:30 Temperature Temperature Source Pulse Rate 79 80 80 Pulse Rate from SpO2 Sensor 80 76 81 Pulse Rhythm Pulse Strength Respiratory Rate 22 22 17 Respiratory Effort / Characteristics Respiratory Depth Respiratory Pattern Blood Pressure 207/127 H 188/127 H 205/126 H Blood Pressure Mean 150 160 177 Blood Pressure Position Pulse Oximetry 95 95 95 Oxygen Delivery Method Sepsis Recent Fever Within 48 Hours Sepsis New/Unexplained Change in Mental Status Sepsis Action Taken by Nursing 12/13/19 20:40 12/13/19 20:50 12/13/19 21:00 Temperature Temperature Source Pulse Rate 83 80 81 Pulse Rate from SpO2 Sensor 78 78 81 Pulse Rhythm Pulse Strength Respiratory Rate 15 16 19 Respiratory Effort / Characteristics Respiratory Depth Respiratory Pattern Blood Pressure 218/132 H 205/143 H 210/132 H Blood Pressure Mean 153 166 161 Blood Pressure Position Pulse Oximetry 95 95 96 Oxygen Delivery Method Sepsis Recent Fever Within 48 Hours Sepsis New/Unexplained Change in Mental Status Sepsis Action Taken by Nursing 12/13/19 21:10 12/13/19 21:20 12/13/19 21:31 Temperature Temperature Source Pulse Rate 83 81 81 Pulse Rate from SpO2 Sensor 84 65 75 Pulse Rhythm Pulse Strength Respiratory Rate 15 22 18 Respiratory Effort / Characteristics Respiratory Depth Respiratory Pattern Blood Pressure 234/127 H 202/117 H 203/119 H Blood Pressure Mean 146 149 134 Blood Pressure Position Pulse Oximetry 96 93 97 Oxygen Delivery Method Sepsis Recent Fever Within 48 Hours Sepsis New/Unexplained Change in Mental Status Sepsis Action Taken by Nursing 12/13/19 21:40 Temperature Temperature Source Pulse Rate 84 Pulse Rate from SpO2 Sensor 84 Pulse Rhythm Pulse Strength Respiratory Rate 19 Respiratory Effort / Characteristics Respiratory Depth Respiratory Pattern Blood Pressure 214/119 H Blood Pressure Mean 142 Blood Pressure Position Pulse Oximetry 93 Oxygen Delivery Method Sepsis Recent Fever Within 48 Hours Sepsis New/Unexplained Change in Mental Status Sepsis Action Taken by Nursing Constitutional: Vital signs reviewed. Eyes: Pupils are equal round reactive to light. Conjunctiva are noninjected. ENT: Pharynx is clear without erythema or exudate. Mucous membranes are moist. Neck supple without meningeal signs. Respiratory: Clear to auscultation bilaterally. Breath sounds are equal bilaterally. Cardiovascular: Regular rate and rhythm. No rubs or gallops. GI: Soft, nondistended and nontender. Bowel sounds are present. Musculoskeletal: No peripheral edema. No lower extremity tenderness. Integumentary: No cyanosis. or jaundice. Neurologic: The patient is awake and alert. Cranial nerves II-XII are intact except for left facial droop sparing the forehead. 3 out of 5 strength in the left arm. 5 out of 5 otherwise. Sensation is intact to light touch all extremities. Normal speech. Left pronator drift. Limb ataxia in the left arm only. Psychiatric: Normal affect. Not anxious appearing. Course Administered Medications Discontinued Medications Hydralazine HCl (Apresoline) 50 mg PO NOW STA Stop: 12/13/19 19:36 Last Admin: 12/13/19 20:07 Dose: Not Given Documented by: [id number] Ioversol (Optiray 320 125ml) 118 ml IV ONCE PRN PRN Reason: Interaction Checking Stop: 12/17/19 19:17 Last Admin: 12/13/19 19:19 Dose: 118 ml Documented by: [id number] Labetalol HCl (Normodyne) 5 mg IV NOW STA Stop: 12/13/19 19:49 Last Admin: 12/13/19 20:06 Dose: 5 mg Documented by: [id number] Cosigned by: [id number] Lisinopril (Zestril) 40 mg PO NOW STA Stop: 12/13/19 19:36 Last Admin: 12/13/19 20:07 Dose: Not Given Documented by: [id number] Metoprolol Tartrate (Lopressor) 5 mg IV NOW STA Stop: 12/13/19 22:42 Last Admin: 12/13/19 23:01 Dose: 5 mg Documented by: [id number] Critical Care Time Critical Care Time: Yes Total Critical Care Time: 33 I have personally spent approximately 33 minutes of critical care time in the direct management of this patient. This includes bedside care, interpretation of diagnostic studies, and testing, discussion with consultants, patient, and family members, and other required patient management activities. These minutes are in excess of all separately billable procedures. Medical Decision Making Differential Diagnosis CVA, ICH, intracranial mass, TIA, metabolic derangement Medical Records Attestation: I reviewed the patient's medical records. The patient was seen by his PCP last month for blood pressure control as well as other issues. He was placed on hydralazine 50 mg twice a day at that time. Home Medications Current Medication List: was personally reviewed by me Laboratory Data Attestation: I reviewed the patient's lab results. Result diagrams: 12/13/19 19:48 12/13/19 19:48 Lab Results 12/13/19 12/13/19 12/13/19 Range/Units 19:48 19:48 19:48 WBC 6.76 (4.8-10.8) K/uL RBC 4.81 (4.7-6.1) M/uL Hgb 15.8 (14.0-18.0) g/dL Hct 44.9 (42-52) % MCV 93.3 (80-100) fL MCH 32.8 (25-34) pg MCHC 35.2 (32-36) g/dL RDW Std Deviation 48.7 H (36.4-46.3) fL RDW Coeff of Lilian 14.2 (11.5-14.5) % Plt Count 133 (130-400) K/uL MPV 9.9 (7.4-10.4) fL Immature Gran % (Auto) 0.1 % Neut % (Auto) 69.8 % Lymph % (Auto) 20.3 % Glenn % (Auto) 6.8 % Eos % (Auto) 2.4 % Baso % (Auto) 0.6 % Neut # (Auto) 4.72 (1.4-6.5) K/uL Lymph # (Auto) 1.37 (1.2-3.4) K/uL Glenn # (Auto) 0.46 (0.11-0.59) K/uL Eos # (Auto) 0.16 (0-0.5) K/uL Baso # (Auto) 0.04 (0-0.2) K/uL Immature Gran # (Auto) 0.01 (0.00-0.02) K/uL PT 10.9 (9.0-12.0) Seconds INR 1.0 (0.9-1.1) APTT 27.8 (21.0-31.0) Seconds PTT Ratio 1.0 Sodium 142 (136-145) mmol/L Potassium 3.3 L (3.5-5.1) mmol/L Chloride 109 H (98-107) mmol/L Carbon Dioxide 26 (21-32) mmol/L Anion Gap 7.0 (3-11) BUN 19 H (7-18) mg/dl Creatinine 1.67 H (0.6-1.4) mg/dl Est Cr Clr Drug Dosing 46.0 ml/min Est GFR ( Amer) 47.3 Est GFR (Non-Af Amer) 40.8 BUN/Creatinine Ratio 11.1 (10-20) Glucose 86 (70-99) mg/dl Calcium 9.0 (8.5-10.1) mg/dl Magnesium 2.0 (1.8-2.4) mg/dl Total Bilirubin 1.3 H (0.2-1) mg/dl AST 11 L (15-37) U/L ALT 15 (12-78) U/L Alkaline Phosphatase 79 (45-117) U/L Troponin I 0.018 (0-0.045) ng/ml Total Protein 7.3 (6.4-8.2) gm/dl Albumin 3.6 (3.4-5.0) gm/dl Globulin 3.7 (2.5-4.0) gm/dl Albumin/Globulin Ratio 1.0 (0.9-2) Blood Type Antibody Screen 12/13/19 Range/Units 19:49 WBC (4.8-10.8) K/uL RBC (4.7-6.1) M/uL Hgb (14.0-18.0) g/dL Hct (42-52) % MCV (80-100) fL MCH (25-34) pg MCHC (32-36) g/dL RDW Std Deviation (36.4-46.3) fL RDW Coeff of Lilian (11.5-14.5) % Plt Count (130-400) K/uL MPV (7.4-10.4) fL Immature Gran % (Auto) % Neut % (Auto) % Lymph % (Auto) % Glenn % (Auto) % Eos % (Auto) % Baso % (Auto) % Neut # (Auto) (1.4-6.5) K/uL Lymph # (Auto) (1.2-3.4) K/uL Glenn # (Auto) (0.11-0.59) K/uL Eos # (Auto) (0-0.5) K/uL Baso # (Auto) (0-0.2) K/uL Immature Gran # (Auto) (0.00-0.02) K/uL PT (9.0-12.0) Seconds INR (0.9-1.1) APTT (21.0-31.0) Seconds PTT Ratio Sodium (136-145) mmol/L Potassium (3.5-5.1) mmol/L Chloride (98-107) mmol/L Carbon Dioxide (21-32) mmol/L Anion Gap (3-11) BUN (7-18) mg/dl Creatinine (0.6-1.4) mg/dl Est Cr Clr Drug Dosing ml/min Est GFR ( Amer) Est GFR (Non-Af Amer) BUN/Creatinine Ratio (10-20) Glucose (70-99) mg/dl Calcium (8.5-10.1) mg/dl Magnesium (1.8-2.4) mg/dl Total Bilirubin (0.2-1) mg/dl AST (15-37) U/L ALT (12-78) U/L Alkaline Phosphatase (45-117) U/L Troponin I (0-0.045) ng/ml Total Protein (6.4-8.2) gm/dl Albumin (3.4-5.0) gm/dl Globulin (2.5-4.0) gm/dl Albumin/Globulin Ratio (0.9-2) Blood Type O Negative Antibody Screen NEGATIVE Imaging Data Radiologist's Impression: HEAD CT NONCONTRAST CT DOSE: HISTORY: Stroke evaluation TECHNIQUE: Multiaxial CT images of the head were performed without the use of intravenous contrast. Automated exposure control was utilized for this study. A dose lowering technique was utilized adhering to the principles of ALARA. Comparison: Brain MRI 08/29/2016. Head CT 12/11/2009. Findings: The paranasal sinuses and mastoid air cells are clear. The calvarium and skull base are intact. There is no mass, hematoma, midline shift, acute infarct. White matter hypodensity is nonspecific but suggestive of moderate microvascular ischemic change. The ventricles and sulci demonstrate mild age- related involutional changes. Impression: No acute intracranial abnormality. Atrophy and microvascular ischemic changes. ACT 112: Negative or not required by law. Electronically signed by: Wiley Corona M.D. 12/13/2019 7:44 PM Dictated: 12/13/191940 Transcribed: 12/13/191940 HEAD & NECK CTA HISTORY: Stroke evaluation TECHNIQUE: Multiaxial CT images of the head were performed the intravenous administration of contrast to evaluate the major cerebral vessels. Multiaxial CT images of the neck were also performed following the intravenous administration of contrast to evaluate the major cervical vessels. Maximum intensity projection images were also obtained. A dose lowering technique was utilized adhering to the principles of ALARA. COMPARISON: None. FINDINGS: Moderate calcified plaque within the bilateral carotid siphons and distal vertebral arteries. Severely hypoplastic right A1 segment which is likely developmental. The major dural venous sinuses appear patent. There is also hypoplastic distal right vertebral artery. Focal moderate stenosis within the left P2 segment as seen on axial image 100. The remaining distal left LEGAL ASSISTANT is patent. Visualized intracranial internal carotid arteries, distal vertebral arteries, and basilar artery are widely patent. There is no significant stenosis, occlusion, or aneurysm seen within the bilateral ACAs, MCAs, or right LEGAL ASSISTANT. The aortic arch and proximal great vessels are widely patent. There is no significant stenosis, occlusion, or dissection identified within the bilateral common carotid, internal carotid, or vertebral arteries. The right vertebral artery is slightly hypoplastic in comparison to the left. Mild calcified plaque seen within the bilateral carotid bifurcations. Bilateral thyroid nodules. Dominant nodule on the left measures 3.6 cm. IMPRESSION: 1. Focal moderate stenosis within the left P2 segment. Otherwise, no additional areas of stenosis, occlusion, or aneurysm identified within the [place]. 2. No significant stenosis, occlusion, or dissection identified within the carotid or vertebral arteries. 3. Multinodular thyroid gland. Dominant nodule on the left measures 3.6 cm. Follow-up nonemergent thyroid ultrasound can be used for further evaluation. ACT 112: Negative or not required by law. Electronically signed by: Wiley Corona M.D. 12/13/2019 7:53 PM ECG Data Attestation: I personally reviewed and interpreted this ECG as follows: Indication: + other (Stroke) Rate (beats per minute): 86 Rhythm: + normal sinus ECG Intervals/blocks: no Left bundle branch block ECG ST segments: no ST elevation ECG Findings: + LVH; no PVCs Blood Pressure Blood Pressure Findings: Elevated blood pressure Blood Pressure Disposition: further management by hospitalist [facility] Narrative I did provide prehospital medical command for the patient. A stroke alert was not called because the patient had symptoms since yesterday at 3 PM. I did evaluate the patient as noted above. IV access was established. I did order a CT of the head and CT angiogram of the head and neck. I did review the images myself as well as the radiology report as described above. I did place an order for continuous cardiac monitoring. The monitor showed normal sinus rhythm with a rate of 83 bpm. His blood pressure severely elevated but he states that he did not take his medication since yesterday. He cannot swallow oral pills so he was given labetalol 5 mg IV. His blood pressure did come down to the 180s systolic. I did order and personally review the patient's 12-lead EKG as described above. He has no evidence of acute ischemia or dysrhythmia. I did order and review the patient's blood work as noted in the electronic medical record. He has chronic kidney disease with a creatinine of 1.67. His potassium is 3.3. I did reassess the patient. I did discuss the test results with him. I did recommend hospitalization for further care and evaluation. The case was discussed with the hospitalist and case managers. Impression & Plan Acute cerebrovascular accident (CVA), Left-sided muscle weakness, Hypertensive emergency Discharge Plan Visit Data Chief Complaint: Stroke/CVA Symptoms Stated Complaint: STROKE SX ED Provider: Cristo Cm Discharge Problem: Acute cerebrovascular accident (CVA), Left-sided muscle weakness, Hypertensive emergency Discharge Instructions Interventions: ED Discharge Assessment Last Done: 12/13/19 22:57
[2019-12-13 20:10] LABS: Partial Thromboplastin Time 27.8 Seconds (21.0-31.0); Prothrombin Time 10.9 Seconds (9.0-12.0)
[2019-12-13 20:16] LABS: Albumin Level 3.6 gm/dl (3.4-5.0); BUN Creatinine Ratio 11.1 (10-20); Est GFR (African American) 47.3; Est GFR (Non-African American) 40.8; Potassium 3.3 mmol/L (3.5-5.1)
[2019-12-13 20:21] LABS: Bilirubin,Total 1.3 mg/dl (0.2-1); Globulin 3.7 gm/dl (2.5-4.0); Total Protein 7.3 gm/dl (6.4-8.2); Troponin I 0.018 ng/ml (0-0.045)
--- NOTE | 2019-12-13 22:04 | History & Physical Report ---
Date of Service December 13, 2019 Assessment & Plan (1) Left-sided muscle weakness: Mr. Farrukh Mancia is a 69 y/o male with past medical hx of HTN, DM2(not currently requiring treatment), CKD 3, BPH, Forgetfulness, HLD, sleep apnea who presented to [facility] ED with complaints of left arm weakness. - Physical Exam findings with left sided weakness, including the face which spares the forehead, tongue deviation to the left; no sensory deficits, suspect lacunar infarct in the setting of HTN, DM, and history that appears to support suspected poor compliance with outpatient medications from issues with memory. He appears to have left leg weakness as well. Imaging performed in ED. - Head CT - No acute intracranial abnormality. Atrophy and microvascular ischemic changes. - Head/Neck CTA 1. Focal moderate stenosis within the left P2 segment. Otherwise, no additional areas of stenosis, occlusion, or aneurysm identified within the [place]. 2. No significant stenosis, occlusion, or dissection identified within the carotid or vertebral arteries. 3. Multinodular thyroid gland. Dominant nodule on the left measures 3.6 cm. Follow-up nonemergent thyroid ultrasound can be used for further evaluation. - Stroke admit orders utilized per protocols/neuro checks/nursing stroke protocols - NPO except for medications, tolerated PO meds here in ED. Swallowing studies/dysphagia screen. - ASA 81mg ordered, appears wasn't ordered in ED - Record review shows should be on Atorvastatin, but not on current med list, Lipid panel ordered for AM, Atorvastatin 80mg PO Ordered. - Neurology consulted - MRI Brain ordered DVT ppx: SCDs FENGI: NSS IVF @ 100ml/Hr, NPO Dispo: Full admit Code: Full code (2) Hypertensive emergency: - Hyrdralazine 10mg IV PRN for pressures of >220/ >120; permissive HTN with goal around 180 systolic, at least keep less than 200 systolic. - did receive home lisinopril 40mg PO in ED, Hydralazine 50mg PO, Labetalol 5mg IV x1 - trend trops; still waiting on ECG to be performed. (3) B12 deficiency: Noted in hx, hold home B12 to limit PO intake (4) Mild cognitive impairment: known small vessel disease on MRI brain from 2012. Last saw [facility] Neuro on 11/28/19, with plan for neuropsych referral which unsure if patient had; planned to have MRI brain with GRE sequence to rule out CAA (5) Forgetfulness: as above (6) Hypertension: as noted above, appears to have history of poorly controlled HTN - Also Neph note from 11/23/19 states patient stopped taking Lisinopril when he started taking Hydralazine on 11/08 by PCP. He was asked at that visit to restart Lisinopril which he notes he has been taking both. PCP care note from visit on 11/09/19 "# HTN- not well controlled currently lisinopril 40 mg daily - previously HCTZ discontinued no longer on metoprolol 50 mg ER daily - started hydralazine 50 mg twice daily November 09, 2019 return in 1 month for follow-up" (7) Chronic kidney disease, stage III (moderate): Neph note from 11/23/19 1.67 in ED, appears close to baseline. "CKD III A3. Baseline creatinine 1.25 to 1.6 mg/dL. 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 BP remains slightly elevated but Farrukh stopped lisinopril when starting hydralazine. I have asked him to restart lisinopril at this time." (8) Obstructive sleep apnea: From sleep disorder visit note from 10/03/19. CPAP ordered 14cm of H2O, c flex setting of 2 (9) Type 2 diabetes mellitus: Noted in history on chart review, will get Hgb A1C for AM for risk factor intervention Not currently on any medication, Glucose in ED 86 Currently NPO, will defer any treatment at this time. (10) Thyroid nodule: Multinodular thyroid gland. Dominant nodule on the left measures 3.6 cm. Follow-up nonemergent thyroid ultrasound can be used for further evaluation. Defer workup to attending or possibly can be performed outpatient. (11) Acute hypokalemia: Replacement via 20meq Potassium IV trend Mag in ED WNL History of Present Illness Chief Complaint: Stroke Primary Care Provider: Katya Verde MD Mr. Farrukh Mancia is a 69 y/o male with past medical hx of HTN, DM2(not currently requiring treatment), CKD 3, BPH, Forgetfulness, HLD, sleep apnea who presented to [facility] ED with complaints of left arm weakness. Symptom onset was around 3pm yesterday or about 30 hours ago. He notes onset of left arm weakness, expressive dysphasia, difficulty swallowing/handling secretions because of left sided facial weakness. He notes slurred speech and difficulty articulating words. He denies any numbness. He denies any recent head trauma and is not on anti-coagulants. He reports he takes ASA daily but did not take it today. He notes symptoms have been persistent. 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 He denies any visual changes. No cough, shortness of breath, chest pain, fever, chills, or recent illness. He notes he has been wearing his CPAP. He did have a fall onto his buttocks without significant injury at home which he noted was not fall due to weakness but to rushing to the restroom. In the ED, he was found to be Hypertensive 234/133 on presentation, treated with Hydralazine 50mg PO, Labetalol 5mg IV x1, Lisinopril 40mg PO. Labs significant for K 3.3. Otherwise labs unremarkable. He had a Head CT, Head/Neck CTA. He does follow with [facility] Neuro for cognitive forgetfulness and was scheduled to have outpatient MRI later this week he notes. His records indicate he is supposed to be on Atorvastatin 40mg from last PCP note, but this medication is not on his current med list. Allergies Allergy/AdvReac Type Severity Reaction Status Date / Time No Known Allergies Allergy Verified 12/13/19 20:04 Home Medications Home Medications Medication Instructions Recorded Confirmed Type cholecalciferol (vitamin D3) 50 2,000 units PO DAILY #30 cap 02/24/19 12/13/19 History mcg (2,000 unit) capsule fluticasone propionate 50 2 sprays INTRANASAL BID #1 gm 02/24/19 12/13/19 History mcg/actuation nasal spray,suspension hydralazine 50 mg tablet 50 mg PO Q12H #60 tab 11/09/19 12/13/19 Rx lisinopril 40 mg tablet 40 mg PO DAILY #90 tab 11/23/19 12/13/19 Rx cyanocobalamin (vitamin B-12) 1,000 mcg SL DAILY #90 tab 12/02/19 12/13/19 Rx 1,000 mcg sublingual tablet cyanocobalamin (vitamin B-12) 1,000 mcg SQ WK 12/13/19 12/13/19 History Past Med/Surg History Medical History Benign hypertension Benign prostatic hyperplasia with lower urinary tract symptoms Chronic kidney disease, stage III (moderate) Elevated PSA Nocturnal hypoxemia Obstructive sleep apnea Type 2 diabetes mellitus Ulcerative colitis Surgical History S/P cholecystectomy S/P partial colectomy S/P TURP Family History Father Myocardial infarction Grandfather (Paternal) Myocardial infarction Mother Bipolar disorder Brother Bipolar disorder Sister Bipolar disorder Denies family history of Colon cancer Ovarian cancer Prostate cancer Breast cancer Social History Smoking Status: Never smoker Hx Alcohol Use: Yes Alcohol type: beer Hx Substance Use: No Preferred Language: Mohawk Communication Ability: Effective Visual Impairment: No Limitations Hearing Ability: [place] Mail Carrier Required: No Beliefs That Will Affect Care: None marital status: Single Current Living Situation: Alone Current Living Situation Comment: Lives with sabina roblero current occupational status: employed 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 Other Information That Helps Us Care for You: No Feels Safe at Home: Yes Safety Concerns: Feels Safe At This Time Childhood Exposure to Second-Hand Smoke: Yes Dental Care, Regularly: No Physical Activity Frequency: 1-2 Times per Week Seatbelt Use: always Sunscreen Use: Yes Review of Systems Review of Systems: All systems reviewed & are unremarkable except as noted in HPI & below Constitutional: no fever and no chills Eyes: no diplopia, no loss of peripheral vision and no spots in vision Ear, Nose, Mouth, Throat: no nasal congestion, no epistaxis, no bleeding gums and no sore throat Respiratory: no cough and no dyspnea Cardiovascular: no chest pain, no palpitations and no edema Gastrointestinal: no abdominal pain, no nausea, no vomiting and no diarrhea/loose stools Genitourinary: no dysuria and no urinary frequency Musculoskeletal: no back pain, no neck pain and no joint pain Integumentary: no rash and no lesions Neurologic: as per Subjective / HPI Physical Exam Constitutional: WD/WN, vitals as above cooperative and comfortable; no acute distress and no altered mental status Eyes: PERRL, conjunctivae normal, anicteric sclerae EOM intact bilaterally ENMT: Ears: no external ear abnormality Mouth: no drooling Neck: normal visual inspection and trachea midline Respiratory: normal respiratory effort, lungs clear to auscultation Cardiovascular: RRR, no murmur, no edema Gastrointestinal (Abdomen): Inspection/Auscultation: normal bowel sounds Percussion/Palpation: abdomen soft; abdomen nontender, no guarding and abdomen not rigid Musculoskeletal: Head/Neck/Chest: normocephalic and head atraumatic Skin: no rashes, warm and dry Neurologic: moves all extremities, + focal motor deficit (left arm and left leg) and awake Speech / Cognition: + abnormal speech (speech slurred) Cranial Nerves: EOM intact bilaterally and able to elevate shoulders bilaterally (maybe some mild leftsided weakness); + tongue not midline (protrudes left) Coordination: + abnormal [id number] test (left finger abnormal) left foot weak to plantar flexion; left arm weak to flex/ext/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 Psychiatric: Orientation: alert and oriented x 3 Results & Data Results & Data ([facility]) Vital Signs (Past 12 Hours) Vital Signs Temp Pulse Resp BP Pulse Ox 12/13/19 20:30 80 17 205/126 H 95 12/13/19 20:21 80 22 188/127 H 95 12/13/19 20:15 79 22 207/127 H 95 12/13/19 20:12 82 20 220/123 H 95 12/13/19 19:36 86 19 222/125 H 12/13/19 19:30 36.8 C 84 24 234/133 H 95 Laboratory Results Laboratory Results - last 24 hr 12/13/19 12/13/19 12/13/19 19:48 19:48 19:48 WBC 6.76 RBC 4.81 Hgb 15.8 Hct 44.9 MCV 93.3 MCH 32.8 MCHC 35.2 RDW Std Deviation 48.7 H RDW Coeff of Lilian 14.2 Plt Count 133 MPV 9.9 Immature Gran % (Auto) 0.1 Neut % (Auto) 69.8 Lymph % (Auto) 20.3 [place] % (Auto) 6.8 Eos % (Auto) 2.4 Baso % (Auto) 0.6 Neut # (Auto) 4.72 Lymph # (Auto) 1.37 [place] # (Auto) 0.46 Eos # (Auto) 0.16 Baso # (Auto) 0.04 Immature Gran # (Auto) 0.01 PT 10.9 INR 1.0 APTT 27.8 PTT Ratio 1.0 Sodium 142 Potassium 3.3 L Chloride 109 H Carbon Dioxide 26 Anion Gap 7.0 BUN 19 H Creatinine 1.67 H Est Cr Clr Drug Dosing 46.0 Est GFR ( Amer) 47.3 Est GFR (Non-Af Amer) 40.8 BUN/Creatinine Ratio 11.1 Glucose 86 Calcium 9.0 Magnesium 2.0 Total Bilirubin 1.3 H AST 11 L ALT 15 Alkaline Phosphatase 79 Troponin I 0.018 Total Protein 7.3 Albumin 3.6 Globulin 3.7 Albumin/Globulin Ratio 1.0 Blood Type Antibody Screen 12/13/19 19:49 WBC RBC Hgb Hct MCV MCH MCHC RDW Std Deviation RDW Coeff of Lilian Plt Count MPV Immature Gran % (Auto) Neut % (Auto) Lymph % (Auto) [place] % (Auto) Eos % (Auto) Baso % (Auto) Neut # (Auto) Lymph # (Auto) [place] # (Auto) Eos # (Auto) Baso # (Auto) Immature Gran # (Auto) PT INR APTT PTT Ratio Sodium Potassium Chloride Carbon Dioxide Anion Gap BUN Creatinine Est Cr Clr Drug Dosing Est GFR ( Amer) Est GFR (Non-Af Amer) BUN/Creatinine Ratio Glucose Calcium Magnesium Total Bilirubin AST ALT Alkaline Phosphatase Troponin I Total Protein Albumin Globulin Albumin/Globulin Ratio Blood Type O Negative Antibody Screen NEGATIVE Diagnostic Findings head CT = Impression: No acute intracranial abnormality. Atrophy and microvascular ischemic changes. Head/Neck CTA = IMPRESSION: 1. Focal moderate stenosis within the left P2 segment. Otherwise, no additional areas of stenosis, occlusion, or aneurysm identified within the [place]. 2. No significant stenosis, occlusion, or dissection identified within the carotid or vertebral arteries. 3. Multinodular thyroid gland. Dominant nodule on the left measures 3.6 cm. Follow-up nonemergent thyroid ultrasound can be used for further evaluation. Medications Administered Ioversol (Optiray 320 125ml) 118 ml IV ONCE PRN PRN Reason: Interaction Checking Stop: 12/17/19 19:17 Last Admin: 12/13/19 19:19 Dose: 118 ml Documented by: [id number] Code Status & VTE Plan Code Status Full Code VTE Prophylaxis Plan VTE Prophylaxis will be ordered: Yes Supervising Physician Co-Signing Physician Notes Attending addendum: I have physically seen this patient, have supervised the medical residents activities, and agree with the H&P unless as otherwise noted. Assessment and Plan: CVA- The patient will be admitted to telemetry for serial cardiac enzymes, serial EKG's, cardiac rhythm monitoring and a 2-D echocardiogram with Dopplers. Left arm weakness/speech difficulty Stroke without TPA order set CT head showing chronic small vessel disease. CTA head and neck primarily significant for focal moderate stenosis within the left P2 segment. N.p.o. until passes dysphagia screen MRI of brain to be performed if verification of inner ear prosthetic device can be verified as safe to perform test. Consult PT/OT/speech therapy/neurology Permissive hypertension: Hydralazine 10 mg IV every 4 hours PRN systolic blood pressure above 180 Patient did receive labetalol 5 mg IV x1 in the ED. Hold lisinopril p.o. and hydralazine p.o. until passing dysphagia screen Multinodular thyroid/dominant left thyroid nodule 3.6 cm- Will need follow-up with thyroid ultrasound/thyroid uptake scan Check TSH and free T4 Remainder of orders and notations as noted. Resident Activity Tracking Resident Involvement: Resident Care Provided Care Provided: [facility]
[2019-12-13] MEDS ORDERED: METOPROLOL TARTRATE 1 MG/ML VIAL IV STA (22:41)
[2019-12-13 23:18] LABS: Appearance Urine Clear (Clear); Bacteria Urine Automated Negative (Negative); Bilirubin Urine Negative (Negative); Blood Urine 1+ (Negative); Color Urine Yellow; Glucose Urine UA Negative (Negative); Ketones Urine Trace (Negative); Leukocyte Esterase Urine Negative (Negative); Nitrite Urine Negative (Negative); Protein Urine 2+ (Negative); Specific Gravity Urine 1.022 (1.000-1.030); Urobilinogen Urine Negative (Negative)
[2019-12-13] MEDS ORDERED: ONDANSETRON INJ 2 MG/ML 2 ML VIAL IV PRN (23:25)
[2019-12-13] MEDS ORDERED: SODIUM CHLORIDE 0.9% 1000ML 1,000 ML IV SCH (23:25)
[2019-12-13] MEDS ORDERED: ACETAMINOPHEN 1,000 MG/100 ML VIAL IV PRN (23:25)
[2019-12-13] MEDS ORDERED: PHARMACIST DISCHARGE MED REC CONSULT PRN (23:25)
[2019-12-13] MEDS: ASPIRIN 81 MG ECTAB PO SCH (23:49)
[2019-12-13] MEDS: HydrALAZINE HCL 20 MG/ML VIAL IV PRN (23:50)
[2019-12-14] MEDS ORDERED: LABETALOL HCL IV 5 MG/ML 20ML IV STA (00:08)
[2019-12-14] MEDS ORDERED: ASPIRIN 300 MG SUPP PR ONE (00:13)
[2019-12-14] MEDS: POTASSIUM CHLORIDE / WTR 10 MEQ/100 ML PLCT IV SCH ×2 (00:19→01:30)
[2019-12-14] MEDS ORDERED: HydrALAZINE HCL 20 MG/ML VIAL IV STA ×2 (00:51→02:17)
[2019-12-14 02:34] LABS: Basophils # (auto) 0.05 K/uL (0-0.2); Basophils % (auto) 0.5 %; Eosinophils # (auto) 0.18 K/uL (0-0.5); Eosinophils % (auto) 1.9 %; Hematocrit (blood only) 47.4 % (42-52); Hemoglobin 17.1 g/dL (14.0-18.0); Immature Granulocytes # (auto) 0.03 K/uL (0.00-0.02); Immature Granulocytes % (auto) 0.3 %; Lymphocytes # (auto) 1.61 K/uL (1.2-3.4); Mean Corpuscular Hemoglobin 33.8 pg (25-34); Mean Corpuscular Hgb Conc 36.1 g/dL (32-36); Mean Corpuscular Volume 93.7 fL (80-100); Mean Platelet Volume 10.5 fL (7.4-10.4); Monocytes # (auto) 0.61 K/uL (0.11-0.59); Monocytes % (auto) 6.4 %; Neutrophils # (auto) 6.99 K/uL (1.4-6.5); Neutrophils % (auto) 73.9 %; Platelet Count 156 K/uL (130-400); RDW Coefficient of Variation 14.4 % (11.5-14.5); RDW Standard Deviation 48.5 fL (36.4-46.3); Red Blood Count 5.06 M/uL (4.7-6.1); White Blood Count 9.47 K/uL (4.8-10.8)
[2019-12-14 02:59] LABS: Creatinine Clr Calc Pharmacy 49.6 ml/min; Est GFR (African American) 53.5; Est GFR (Non-African American) 46.1; Magnesium 1.8 mg/dl (1.8-2.4); Potassium 3.4 mmol/L (3.5-5.1)
[2019-12-14 03:10] LABS: Thyroid Stimulating Hormone 1.57 uIu/ml (0.300-4.500)
[2019-12-14 06:05] LABS: Estimated Average Glucose 103 mg/dl; Hemoglobin A1C 5.2 % (4.5-5.6)
--- NOTE | 2019-12-14 08:10 | XRay Report ---
XR chest 1V portable HISTORY: CVA w/vomiting, chills, aspiration? COMPARISON: Chest 12/02/2017. FINDINGS: No pneumothorax or no pleural effusions. The heart is mildly enlarged. No focal lung consol idations to suggest pneumonia. No evidence for pulmonary edema. 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 IMPRESSION: Mild cardiomegaly. Otherwise, no acute process within the chest. ACT 112: Negative or not required by law. Electronically signed by: Wiley Corona M.D. 12/14/2019 8:09 AM
[2019-12-14] MEDS ORDERED: ATORVASTATIN 40 MG TAB PO SCH (09:00)
[2019-12-14] MEDS: lisinopriL 40 MG TAB PO SCH (09:36)
--- NOTE | 2019-12-14 12:32 | Electrocardiogram Report ---
Test Reason : Blood Pressure : / mmHG Vent. Rate : 086 BPM Atrial Rate : 086 BPM P-R Int : 172 ms QRS Dur : 098 ms QT Int : 386 ms P-R-T Axes : 038 -28 087 degrees QTc Int : 461 ms Normal sinus rhythm Minimal voltage criteria for LVH, may be normal variant Borderline ECG When compared with ECG of 02-DEC-2017 09:33, QRS axis Shifted left Nonspecific T wave abnormality, improved in Lateral leads Confirmed by Donaldo Granados ([id number]) on 12/14/2019 12:31:29 PM Referred By: REFERRED SELF Confirmed By:Donaldo Granados
--- NOTE | 2019-12-14 12:58 | Hospitalist Progress Note ---
Date of Service December 14, 2019 Assessment & Plan (1) Left-sided muscle weakness: Mr. Farrukh Mancia is a 69 y/o male with past medical hx. of HTN, DM2 (not currently requiring treatment), CKD 3, BPH, Forgetfulness, HLD, sleep apnea who presented to [facility] ED with complaints of left arm weakness that started at 3PM. Physical Exam findings with left sided weakness. no sensory deficits, in the setting of HTN, HLD, and history that appears to support suspected poor compliance with outpatient medications from issues with memory. He appears to have left leg weakness as well. Imaging performed in ED. - Head CT - No acute intracranial abnormality. Atrophy and microvascular ischemic changes. - Head/Neck CTA w/ Focal moderate stenosis within the left P2 segment. Otherwise, no additional areas of stenosis, occlusion, or aneurysm identified within the [place]. No significant stenosis, occlusion, or dissection identified within the carotid or vertebral arteries. - Stroke admit orders utilized per protocols/neuro checks/nursing stroke protocols - NPO initially, speech evaluated and will be adding a diet - Swallowing studies will need to occur prior to discharge - ASA 81mg - Atorvastatin started - Neurology consulted - MRI Brain IMPRESSION: 1. 2.4 x 1.6 cm acute infarct within the subcortical white matter of the right frontoparietal region involving the posterior right centrum semiovale. No acute hemorrhage. No mass effect. 2. Numerous foci of susceptibility artifact on the [place] sequence. These suggest old microbleeds or amyloid deposition. 3. No intracranial mass or pathologic enhancement. HTN - blood pressure 234/133 in the ER, given Hydralazine, Labetolol, and lisinopril in the ER - allowing for permissive HTN w/ goal of 180 - can transition to normotensive over 3-4 days - BP has been running systolic 160's - 220 - Hydralazine available for systolic BP > 220 diastolic > 120 - continue lisinopril 40 mg daily Thyroid w/ incidental finding - Multinodular thyroid gland on CT. Dominant nodule on the left measures 3.6 cm. - Follow-up nonemergent thyroid ultrasound can be used for further evaluation. DVT ppx: SCDs FENGI: lisettear thick Dispo: Full admit Code: Full code Admission and Anticipated Discharge Date Admission Date: December 13, 2019 Supervising Physician Co-Signing Physician Notes I personally examined the patient and verified all vivas points of history and exam, discussed case, and agree with decision making with Dr Naik seen at time of speech eval - showing some aspiration ongoing L sided weakness vitals noted nad heent nc at mmm L sided weakness. breathing unlabored. cough w water. CVA - secondary risk reduction, rehab. ongoing PT/OT eval and treat, ongoing s peech eval. appreciate neuro assistance. anticipate need for rehab. elevated BP - appears to have been predominantly baseline HTN and autoregulation in the face of cerebral ischemia - continue to manage DVT proph - heparin SQ Subjective Mr. Farrukh Mancia is doing better today. He explained that he felt better than yesterday and explained that he felt like a "hang over" the day prior. He explained that his symptoms started 3PM the day prior. He wanted to eat, and we discussed that we needed to have speech see him prior to changing his diet. Sister Artem Mancia [phone] called and was concerned about her brother and would like to be updated with any changes. Brother would also like to be informed of patients condition [phone], and brought up that he lives in a house with several steps alone. Review of Systems Review of Systems: Constitutional: denies fevers, chills Cardiac: denies chest pain, palpitations GI: admits vomiting overnight Pulm: admits some cough overnight, denies shortness of breath : catheter in place Physical Exam Constitutional: no acute distress Eyes: EOM intact bilaterally ENMT: external ear and nose normal, oropharynx normal Neck: normal visual inspection Respiratory: normal respiratory effort, lungs clear to auscultation Cardiovascular: RRR, no murmur, no edema Gastrointestinal (Abdomen): normal bowel sounds, soft, nontender, no hepatosplenomegaly Musculoskeletal: - able to move left leg against gravity - unable to move left arm - facial droop on the left Skin: no rashes, warm and dry Results & Data Results & Data ([facility]) Vital Signs (Past 12 Hours) Vital Signs Temp Pulse Pulse Resp BP Pulse Ox 12/14/19 11:55 36.5 C 88 18 176/102 H 95 12/14/19 07:59 36.7 C 77 18 168/95 H 92 12/14/19 03:45 36.5 C 85 20 161/119 H 92 12/14/19 03:06 174/86 H 12/14/19 03:00 80 12/14/19 02:06 211/125 H 12/14/19 01:46 68 18 95 12/14/19 01:35 184/129 H CBC Results Results Complete Blood Count Results: RBC 5.06 M/uL (4.7-6.1) 12/14/19 WBC 9.47 K/uL (4.8-10.8) 12/14/19 Hgb 17.1 g/dL (14.0-18.0) 12/14/19 Hct 47.4 % (42-52) 12/14/19 Plt Count 156 K/uL (130-400) 12/14/19 Chemistry (BMP) Results BMP Results: Sodium 143 mmol/L (136-145) 12/14/19 Potassium 3.4 mmol/L (3.5-5.1) L 12/14/19 Chloride 109 mmol/L (98-107) H 12/14/19 BUN 17 mg/dl (7-18) 12/14/19 Creatinine 1.51 mg/dl (0.6-1.4) H 12/14/19 Glucose 132 mg/dl (70-99) H 12/14/19 Resident Activity Tracking Resident Involvement: Resident Care Provided Care Provided: Adult Hospital Medicine
[2019-12-14] MEDS ORDERED: GADOBUTROL 65ML VIAL IV PRN (13:41)
--- NOTE | 2019-12-14 13:48 | Neurology Consultation ---
Date of Consultation December 14, 2019 Assessment & Plan (1) Stroke: Farrukh Mancia is a 69 yo man w/ PMH of HTN, DM, CALVIN, CKDIII, PACs and h/o memory problems who p/t [facility] after acute onset of L-sided weakness. Symptom localization: right parietal lobe Stroke mechanism: cardioembolic Stroke WorkUp: - CT head: no hemorrhage or hypodensity, +SVID - CTA head/neck: Diffuse intracranial atherosclerosis, mild to moderate left P2 stenosis - MRI brain: Acute infarct in the right parietal lobe, mild generalized atrophy, moderate to severe small vessel disease. - TTE: pending, will consider DARIA - Telemetry: pending - A1c: 5.2 - FLP: 111 - Troponin, TSH: negative, WNL Stroke Management: - Acute treatment: ASA - Continuous cardiac monitoring, 30 day event monitor on d/c - Vitals, Neurochecks, NIHSS per unit routine - BP parameters: SBP CAP 180, restart home BP meds - Complete ischemic stroke workup with TTE without bubble - Consult speech, PT, OT for supportive management - Will supervisor counseling and guidance concerning stroke education, smoking cessation, healthy diet, physical activity, weight loss - Follow up with PCP for assistance with outpatient goals (BP <130/80, LDL <70, A1c <7) - Follow up in neurology clinic in 6-8 weeks (probably with KONSTANTIN Vega) - Would also make sure that he is taking his B12 thousand micrograms daily Secondary Stroke Prevention: - Antiplatelet: ASA 81mg po daily - Anticoagulation: Not indicated at this time - Statin: Atorvastatin 40mg daily HTN: - BP parameters, as above -Okay to restart home medications with goal of lowering BP to normotension over next 3-4 days FEN/GI: - Diet: NPO until cleared by Speech evaluation - Monitor lytes and replete PRN Glucose Control: - Sliding scale insulin and accuchecks per primary team to avoid hyperglycemia Thank you for this interesting consult. Plan of care was discussed with primary team. Please call with any questions. (2) B12 deficiency: (3) Mild cognitive impairment: (4) Hypertension: (5) Chronic kidney disease, stage III (moderate): (6) Type 2 diabetes mellitus: (7) Obstructive sleep apnea: History of Present Illness Attending Physician: Saravanan Bruner DO History of Present Illness Farrukh Mancia is a 69 yo man w/ PMH of HTN, DM, CALVIN, CKDIII, PACs and h/o memory problems who p/t [facility] after acute onset of L-sided weakness. [employer] ~3pm on 12/12/19. In the ED, patient was afebrile, blood pressure 234/133, heart rate 84, respiratory rate 24, satting 95% on room air. Labs notable for WBC 6.76, hemoglobin 15.8, platelets 133, mild hypokalemia 3.3, mildly elevated BUN 19, creatinine 1.67, glucose 86, INR 1.0, calcium/magnesium within normal, LFTs within normal, troponin negative. CT head showed no hemorrhage or clear hypodensity, positive small vessel disease. CTA head and neck shows diffuse intracranial atherosclerosis and mild to moderate left P2 stenosis. Outpatient lab work was notable for B12 236, TSH within normal, UA no infection. He is awaiting MRI brain. On examination today, he reports that he is unable to move his left upper extremity. He also has a left facial droop. He reports that he is hungry and feels like he might be hypoglycemic. Denied any other new neurological symptoms since last time I saw him in clinic a few weeks ago. He is not sure if he started the aspirin or not. No other recent changes to medications, injuries or illnesses. Stroke Workflow: Where patient arrived from: home CT ASPECT: 10 Time IV tpa is given: NA tPA bolus: NA tPA dose: NA If tpa not given, why not: Outside of time window If delay >60min after hospital arrival, why: n/a If no IA therapy, why not: No LVO on CTA Patient Features: Admission NIHSS: 7 Admission Modified Chente Scale: 1-2 Time patient last seen well: 3pm on 12/12/19 Wake up stroke: Yes Intubation status: Not intubated Stroke Risk Factors: Hypertension: Y Hyperlipidemia: N Atrial Fib: N Tobacco: N Diabetes: Y Taking NOAC or warfarin: N Allergies Allergy/AdvReac Type Severity Reaction Status Date / Time No Known Allergies Allergy Verified 12/13/19 20:04 Home Medications Home Medications Medication Instructions Recorded Confirmed Type cholecalciferol (vitamin D3) 50 2,000 units PO DAILY #30 cap 02/24/19 12/13/19 History mcg (2,000 unit) capsule fluticasone propionate 50 2 sprays INTRANASAL BID #1 gm 02/24/19 12/13/19 History mcg/actuation nasal spray,suspension hydralazine 50 mg tablet 50 mg PO Q12H #60 tab 11/09/19 12/13/19 Rx lisinopril 40 mg tablet 40 mg PO DAILY #90 tab 11/23/19 12/13/19 Rx cyanocobalamin (vitamin B-12) 1,000 mcg SL DAILY #90 tab 12/02/19 12/13/19 Rx 1,000 mcg sublingual tablet cyanocobalamin (vitamin B-12) 1,000 mcg SQ WK 12/13/19 12/13/19 History Patient History Medical History Benign hypertension Benign prostatic hyperplasia with lower urinary tract symptoms Chronic kidney disease, stage III (moderate) Elevated PSA Nocturnal hypoxemia Obstructive sleep apnea Type 2 diabetes mellitus Ulcerative colitis Surgical History S/P cholecystectomy S/P partial colectomy S/P TURP Family History Father Myocardial infarction Grandfather (Paternal) Myocardial infarction Mother Bipolar disorder Brother Bipolar disorder Sister Bipolar disorder Denies family history of Colon cancer Ovarian cancer Prostate cancer Breast cancer Social History Smoking Status: Never smoker Hx Alcohol Use: Yes Alcohol type: beer Hx Substance Use: No Preferred Language: [place] Citizen Communication Ability: Effective Visual Impairment: No Limitations Hearing Ability: Normal Business Development Representative Required: No Beliefs That Will Affect Care: None marital status: Single Current Living Situation: Alone Current Living Situation Comment: Lives with sabina roblero current occupational status: employed 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 Exam (Neuro) Physical Exam: General Exam: GEN: NAD, lying down in examination bed. HEENT: No conjunctival injection, no rhinorrhea CV: RRR on monitor, no significant edema. PULM: Nonlabored respirations on room air. Neuro Exam: MS: Awake and Alert. Oriented to person, place, and month/year. Speech fluent and appropriate without dysarthria or paraphasic errors. Language intact including naming, comprehension, repetition. Cognition and memory mildly impaired. Attention intact. No neglect. CN: Visual salazar appear full, + blink to threat bilaterally. No extinction to double simultaneous stimuli. No optic disc edema on fundoscopic exam. PERRLA OU. EOMI without nystagmus. Facial sensation intact to LT. L FP. Hearing intact to conversation. Uvula midline with symmetric palatal elevation. Shoulder shrug normal. Tongue midline. MOTOR: Normal bulk and tone. No pronator drift in RUE. LUE no antigravity, RUE antigravity without drift. Bilateral lower extremities antigravity with no drift noted on the left or right side. REFLEXES: 1+ at biceps, triceps, brachioradialis, 2+ patella, and 1+ Achilles bilaterally. Flexor plantar responses bilaterally. SENSORY: Intact to LT throughout, + extinction to double simultaneous stimuli. Vibration minimally diminished in feet. COORDINATION: No dysmetria or ataxia on [id number] in the right upper extremity. Decreased speed and amplitude of right hand finger taps GAIT: Deferred due to physical status. NIH STROKE SCALE 1A. Level of Consciousness (0-3) = 0 1B. LOC Questions (0-2) = 0 1C. LOC Commands (0-2) = 0 2. Best Horizontal Gaze (0-2) = 0 3. Visual Salazar (0-3) = 0 4. Facial Palsy (0-3) = 2 5. Motor Arm Right (0-4) = 0 Left (0-4) = 3 6. Motor Leg Right (0-4) = 0 Left (0-4) = 0 7. Limb Ataxia (0-2) = 0 8. Sensory (0-2) = 0 9. Best Language (0-3) = 0 10. Dysarthria (0-2) = 1 11. Extinction and Inattention (0-2) = 1 NIHSS TOTAL = 7 Results & Data ([facility]) Vital Signs (Past 12 Hours) Vital Signs Temp Pulse Pulse Resp BP Pulse Ox 12/14/19 11:55 36.5 C 88 18 176/102 H 95 12/14/19 07:59 36.7 C 77 18 168/95 H 92 12/14/19 03:45 36.5 C 85 20 161/119 H 92 12/14/19 03:06 174/86 H 12/14/19 03:00 80 12/14/19 02:06 211/125 H 12/14/19 01:46 68 18 95 12/14/19 01:35 184/129 H PG Care Time/CCT Total # of Minutes Spent Total Time Spent with Patient: Total time spent is greater than 50% in coordination of care (as documented) at patient's floor/unit and/or counseling patient: Coding Level of Care Code 96176 Initial Inpt Care Lvl 3 Diagnoses Stroke I63.9 B12 deficiency E53.8 Mild cognitive impairment G31.84 Hypertension I10 Chronic kidney disease, stage III (moderate) N18.3 Type 2 diabetes mellitus E11.9 Obstructive sleep apnea G47.33
--- NOTE | 2019-12-14 14:00 | Magnetic Resonance Report ---
MR brain SWAN wo/w con CLINICAL HISTORY: Left-sided weakness with dysphagia. COMPARISON STUDY: Head CT and CTA of the head December 13, 2019. MRI of the brain August 29, 2016. Linda paul: Utilizing 1.5 Ashlie magnet, multiplanar, multiecho imaging of the brain was performed pre a nd postcontrast administration. Intravenous injection of 8.5 cc of Gadavist was uneventful. FINDINGS: Note is made of a 2.4 x 1.6 cm focus of restricted diffusion within the posterior right hilario trum semiovale ovale involving the right frontoparietal region. There is no mass effect. There is no acute hemorrhage. No additional foci of restricted diffusion are present. Ventricular system is unrem arkable. Basilar cisterns are patent. There are no extra axial collections. Extensive white matter T2 hyperintense foci reflect small vessel disease. The [place] sequence demonstrates numerous foci of susc eptibility artifact that measure up to 5 mm. C normal. There is no intracranial mass or pathologic en hancement. Orbits and sinuses are unremarkable. IMPRESSION: 1. 2.4 x 1.6 cm acute infarct within the subcortical white matter of the right frontoparietal region involving the posterior right centrum semiovale. No acute hemorrhage. No mass effect. 2. Numerous foci of susceptibility artifact on the [place] sequence. These suggest old microbleeds or am yloid deposition. 3. No intracranial mass or pathologic enhancement. ACT 112: Negative or not required by law. Electronically signed by: Jr Chavez M.D. 12/14/2019 1:58 PM
--- NOTE | 2019-12-14 16:34 | XCELERA ---
[id number]
--- NOTE | 2019-12-14 19:09 | Billing Data ---
Date of Service December 14, 2019 Coding Level of Care Code 32343 Subseq Hosp Care Lvl 3
[2019-12-14] MEDS: HEPARIN SOD 5,000 UNIT/0.5 ML VIAL SQ SCH (21:23)
--- NOTE | 2019-12-15 00:33 | Billing Data ---
Date of Service December 15, 2019 Coding Level of Care Code 60271 Initial Inpt Care Lvl 3
[2019-12-15] MEDS: HEPARIN SOD 5,000 UNIT/0.5 ML VIAL SQ SCH ×2 (08:17→20:44)
[2019-12-15] MEDS: lisinopriL 40 MG TAB PO SCH (08:17)
[2019-12-15 08:34] LABS: Calcium 8.9 mg/dl (8.5-10.1); Creatinine Clr Calc Pharmacy 41.1 ml/min; Est GFR (African American) 42.9; Est GFR (Non-African American) 37.1; Potassium 3.6 mmol/L (3.5-5.1)
[2019-12-15] MEDS: carvediloL 3.125 MG TAB PO SCH ×2 (09:40→20:52)
[2019-12-15] MEDS: ASPIRIN 81 MG ECTAB PO SCH (11:46)
--- NOTE | 2019-12-15 15:29 | Hospitalist Progress Note ---
Date of Service December 15, 2019 Assessment & Plan (1) Left-sided muscle weakness: Mr. Farrukh Mancia is a 69 y/o male with past medical hx. of HTN, DM2 (not currently requiring treatment), CKD 3, BPH, Forgetfulness, HLD, sleep apnea who presented to [facility] ED with complaints of left arm weakness that started at 3PM. Physical Exam findings with left sided weakness. no sensory deficits, in the setting of HTN, HLD, and history that appears to support suspected poor compliance with outpatient medications from issues with memory. He appears to have left leg weakness as well. Imaging performed in ED. - Head CT - No acute intracranial abnormality. Atrophy and microvascular ischemic changes. - Head/Neck CTA w/ Focal moderate stenosis within the left P2 segment. Otherwise, no additional areas of stenosis, occlusion, or aneurysm identified within the [place]. No significant stenosis, occlusion, or dissection identified within the carotid or vertebral arteries. - Stroke admit orders utilized per protocols/neuro checks/nursing stroke protocols - NPO initially, speech evaluated and will be adding a diet - Swallowing studies will need to occur prior to discharge - ASA 81mg - Atorvastatin started - Neurology consulted w/ concern for CAA after review of MRI - LP in the AM to evaluate for inflammation - will continue to hold Statin at this time - MRI Brain: 1. 2.4 x 1.6 cm acute infarct within the subcortical white matter of the right frontoparietal region involving the posterior right centrum semiovale. No acute hemorrhage. No mass effect. 2. Numerous foci of susceptibility artifact on the [place] sequence. These suggest old microbleeds or amyloid deposition. 3. No intracranial mass or pathologic enhancement. HTN - blood pressure 234/133 in the ER, given Hydralazine, Labetolol, and lisinopril in the ER - allowing for permissive HTN w/ goal of 180 - can transition to normotensive over 2-3 days - BP has been running systolic 160's - 220 - Hydralazine available for systolic BP > 220 diastolic > 120 - continue lisinopril 40 mg daily - started Coreg 3.125 JOSE on CKD - patient's Cr. was climbing - added fluid 80 ml/hr Thyroid w/ incidental finding - Multinodular thyroid gland on CT. Dominant nodule on the left measures 3.6 cm. - Follow-up nonemergent thyroid ultrasound can be used for further evaluation. DVT ppx: Lawrence CALLAWAYI: nectar thick, nss ivf Dispo: Full admit Code: Full code Admission and Anticipated Discharge Date Admission Date: December 13, 2019 Supervising Physician Co-Signing Physician Notes I personally examined the patient and verified all vivas points of history and exam, discussed case, and agree with decision making with Dr Naik ongoing L sided weakness and speech difficulty but feels like he's doing better, notes he's optimistic as well. vitals noted nad heent nc at mmm L sided weakness. breathing unlabored. somewhat slurred speech CVA - secondary risk reduction, rehab. ongoing PT/OT eval and treat, ongoing speech eval and treat. appreciate neuro assistance. w CAA will have higher risk for bleed - asa only, stop statin. LP as per neuro recs. anticipate need for rehab. elevated BP - appears to have been predominantly baseline HTN and autoregulation in the face of cerebral ischemia - continue to manage (today adding coreg 3.125 BID) DVT proph - heparin SQ Subjective Doing okay this morning, we discussed that he will need to ensure that when he is eating that he eat slowly to ensure that he does not aspirate. He is right handed. He was able to write his name and name several common items including a pen and paper. Review of Systems Review of Systems: Constitutional: denies fevers, chills Cardiac: denies chest pain, palpitations GI: admits vomiting overnight Pulm: admits some cough overnight, denies shortness of breath : catheter in place Physical Exam Constitutional: no acute distress Eyes: EOM intact bilaterally ENMT: external ear and nose normal, oropharynx normal Neck: normal visual inspection Respiratory: normal respiratory effort, lungs clear to auscultation Cardiovascular: RRR, no murmur, no edema Gastrointestinal (Abdomen): normal bowel sounds, soft, nontender, no hepatosplenomegaly Skin: no rashes, warm and dry Neurologic: - sensation intact bilaterally in the face in ,II,II - unable to move left arm, 4/5 strength in the left lower extremity - no appreciable visual neglect Results & Data Results & Data ([facility]) Vital Signs (Past 12 Hours) Vital Signs Temp Pulse Pulse Resp BP Pulse Ox 12/15/19 15:22 36.8 C 81 18 175/108 H 94 12/15/19 11:47 36.9 C 84 18 166/95 H 95 12/15/19 09:40 80 181/102 H 12/15/19 08:14 37.0 C 86 20 164/103 H 95 12/15/19 05:06 78 24 199/114 H 93 12/15/19 03:54 71 19 93 CBC Results Results Complete Blood Count Results: RBC 5.06 M/uL (4.7-6.1) 12/14/19 WBC 9.47 K/uL (4.8-10.8) 12/14/19 Hgb 17.1 g/dL (14.0-18.0) 12/14/19 Hct 47.4 % (42-52) 12/14/19 Plt Count 156 K/uL (130-400) 12/14/19 Chemistry (BMP) Results BMP Results: Sodium 143 mmol/L (136-145) 12/15/19 Potassium 3.6 mmol/L (3.5-5.1) 12/15/19 Chloride 110 mmol/L (98-107) H 12/15/19 BUN 22 mg/dl (7-18) H 12/15/19 Creatinine 1.81 mg/dl (0.6-1.4) H 12/15/19 Glucose 108 mg/dl (70-99) H 12/15/19 Resident Activity Tracking Resident Involvement: Resident Care Provided Care Provided: Adult [facility] Medicine
--- NOTE | 2019-12-15 16:33 | Neurology Progress Note ---
Date of Service December 15, 2019 Assessment & Plan (1) Stroke: Farrukh Mancia is a 69 yo man w/ PMH of HTN, DM, CALVIN, CKDIII, PACs and h/o memory problems who p/t [facility] after acute onset of L-sided weakness. Symptom localization: right parietal lobe Stroke mechanism: cardioembolic Stroke WorkUp: - CT head: no hemorrhage or hypodensity, +SVID - CTA head/neck: Diffuse intracranial atherosclerosis, mild to moderate left P2 stenosis - MRI brain: Acute infarct in the right parietal lobe, mild generalized atrophy, moderate to severe small vessel disease. - TTE: EF 55-60%, mild LVH, no PFO noted - Telemetry: pending - A1c: 5.2 - FLP: 111 - Troponin, TSH: negative, WNL Stroke Management: - Acute treatment: ASA - Continuous cardiac monitoring, 30 day event monitor on d/c - Vitals, Neurochecks, NIHSS per unit routine - BP parameters: SBP CAP 180, restart home BP meds - Consult speech, PT, OT for supportive management - Will college admissions counselor concerning stroke education, smoking cessation, healthy diet, physical activity, weight loss - Follow up with PCP for assistance with outpatient goals (BP <130/80, LDL <70, A1c <7) - Follow up in neurology clinic in 6-8 weeks (probably with KONSTANTIN Vega) - B12 1000mcg daily - LP with cell counts, protein, glucose, cytology, CSF Lyme and VDRL (if possible, would add on autoimmune encephalitis panel but could also send serum panel if insufficient CSF) Secondary Stroke Prevention: - Antiplatelet: ASA 81mg po daily (given dx of CAA, has an increased risk of microhemorrhages and lobar hemorrhages, there is about a nickel chance of him having an ischemic versus hemorrhagic stroke on aspirin, hence should continue aspirin 81 mg daily unless he does have an ICH in the future and then r - Anticoagulation: Not indicated at this time - Statin: will withhold given increased risk of ICH/CAA diagnosis HTN: - BP parameters, as above - Okay to restart home medications with goal of lowering BP to normotension over next 3-4 days FEN/GI: - Diet: NPO until cleared by Speech evaluation - Monitor lytes and replete PRN Glucose Control: - Sliding scale insulin and accuchecks per primary team to avoid hyperglycemia Thank you for this interesting consult. Plan of care was discussed with primary team. Please call with any questions. (2) B12 deficiency: (3) Mild cognitive impairment: (4) Hypertension: (5) Chronic kidney disease, stage III (moderate): (6) Type 2 diabetes mellitus: (7) Obstructive sleep apnea: Admission and Anticipated Discharge Date Admission Date: December 13, 2019 Subjective NAEs overnight. Reported that he was thirsty and able to eat some lunch earlier. Reviewed interim MRI that is notable for 5 microhemorrhages, 4 for which are at the rogers-white junction consistent with diagnosis of cerebral amyloid angiopathy (CAA). Review of Systems Review of Systems: 14 point review of systems completed and negative except as in HPI. Results & Data ([facility]) Vital Signs (Past 12 Hours) Vital Signs Temp Pulse Resp BP Pulse Ox 12/15/19 15:22 36.8 C 81 18 175/108 H 94 12/15/19 11:47 36.9 C 84 18 166/95 H 95 12/15/19 09:40 80 181/102 H 12/15/19 08:14 37.0 C 86 20 164/103 H 95 12/15/19 05:06 78 24 199/114 H 93 Exam (Neuro) Physical Exam: General Exam: GEN: NAD, lying down in examination bed. HEENT: No conjunctival injection, no rhinorrhea CV: RRR on monitor, no significant edema. PULM: Nonlabored respirations on room air. Neuro Exam: MS: Awake and Alert. Oriented to person, place, and month/year. Speech fluent and appropriate without dysarthria or paraphasic errors. Language intact including naming, comprehension, repetition. Cognition and memory mildly impaired. Attention intact. No neglect today. CN: Visual salazar appear full, + blink to threat bilaterally. No extinction to double simultaneous stimuli. No optic disc edema on fundoscopic exam. PERRLA OU. EOMI without nystagmus. Facial sensation intact to LT. L FP. Hearing intact to conversation. Uvula midline with symmetric palatal elevation. Shoulder shrug normal. Tongue midline. MOTOR: Normal bulk and tone. No pronator drift in RUE. LUE no antigravity, RUE antigravity without drift. Bilateral lower extremities antigravity with no drift noted on the left or right side. REFLEXES: 1+ at biceps, triceps, brachioradialis, 2+ patella, and 1+ Achilles bilaterally. Flexor plantar responses bilaterally. SENSORY: Intact to LT throughout, + extinction to double simultaneous stimuli. Vibration minimally diminished in feet. COORDINATION: No dysmetria or ataxia on [id number] in the right upper extremity. Decreased speed and amplitude of right hand finger taps GAIT: Deferred due to physical status. NIH STROKE SCALE 1A. Level of Consciousness (0-3) = 0 1B. LOC Questions (0-2) = 0 1C. LOC Commands (0-2) = 0 2. Best Horizontal Gaze (0-2) = 0 3. Visual Salazar (0-3) = 0 4. Facial Palsy (0-3) = 2 5. Motor Arm Right (0-4) = 0 Left (0-4) = 3 6. Motor Leg Right (0-4) = 0 Left (0-4) = 0 7. Limb Ataxia (0-2) = 0 8. Sensory (0-2) = 0 9. Best Language (0-3) = 0 10. Dysarthria (0-2) = 1 11. Extinction and Inattention (0-2) = 0 NIHSS TOTAL = 6 PG Care Time/CCT Total # of Minutes Spent Total Time Spent with Patient: Total time spent is greater than 50% in coordination of care (as documented) at patient's floor/unit and/or counseling patient: Coding Level of Care Code 85145 Subseq Hosp Care Lvl 3 Diagnoses Stroke I63.9 B12 deficiency E53.8 Mild cognitive impairment G31.84 Hypertension I10 Chronic kidney disease, stage III (moderate) N18.3 Type 2 diabetes mellitus E11.9 Obstructive sleep apnea G47.33
[2019-12-15] MEDS: SODIUM CHLORIDE 0.9% 1000ML 1,000 ML IV SCH (16:59)
--- NOTE | 2019-12-15 19:10 | Billing Data ---
Date of Service December 15, 2019 Coding Level of Care Code 05593 Subseq Hosp Care Lvl 3
[2019-12-15] MEDS: HydrALAZINE HCL 20 MG/ML VIAL IV PRN (23:30)
[2019-12-16] MEDS: SODIUM CHLORIDE 0.9% 1000ML 1,000 ML IV SCH (05:41)
[2019-12-16 08:04] LABS: Hematocrit (blood only) 44.3 % (42-52); Hemoglobin 15.3 g/dL (14.0-18.0); Mean Corpuscular Hemoglobin 32.9 pg (25-34); Mean Corpuscular Hgb Conc 34.5 g/dL (32-36); Mean Corpuscular Volume 95.3 fL (80-100); Mean Platelet Volume 10.2 fL (7.4-10.4); Platelet Count 136 K/uL (130-400); RDW Coefficient of Variation 14.3 % (11.5-14.5); RDW Standard Deviation 49.8 fL (36.4-46.3); Red Blood Count 4.65 M/uL (4.7-6.1); White Blood Count 7.17 K/uL (4.8-10.8)
[2019-12-16] MEDS: ASPIRIN 81 MG ECTAB PO SCH (08:14)
[2019-12-16] MEDS: lisinopriL 40 MG TAB PO SCH (08:14)
[2019-12-16] MEDS: carvediloL 3.125 MG TAB PO SCH (08:14)
[2019-12-16] MEDS: HEPARIN SOD 5,000 UNIT/0.5 ML VIAL SQ SCH ×2 (08:22→20:56)
[2019-12-16 08:39] LABS: BUN Creatinine Ratio 14.8 (10-20); Calcium 8.7 mg/dl (8.5-10.1); Creatinine Clr Calc Pharmacy 42.7 ml/min; Est GFR (African American) 44.7; Est GFR (Non-African American) 38.6; Potassium 3.7 mmol/L (3.5-5.1)
[2019-12-16] MEDS ORDERED: carvediloL 3.125 MG TAB PO ONE (09:00)
--- NOTE | 2019-12-16 12:58 | Fluoroscopy Report ---
FL video swallow CLINICAL HISTORY: 69 years-old Male with r/o aspiration s/p CVA. Dysphasia with strokelike symptoms TECHNIQUE: Video fluoroscopic evaluation of swallowing was performed in the AP and lateral projection s by the speech pathology staff. The patient was fed thin liquid barium, nectar thick, pudding and cr chace with paste consistencies. FLUOROSCOPY TIME: 2.9 minutes. COMPARISON STUDY: Chest radiograph 12/14/2019 FINDINGS: Aspiration with thin liquid barium. Mild vallecular retention is noted throughout the study . Decreased oral pharyngeal transit with the cracker consistency with disordered mastication. IMPRESSION: 1. Aspiration with thin liquid barium. 2. Please see the speech pathologist report for detailed findings and recommendations. ACT 112: Negative or not required by law. Electronically signed by: Spencer Caceres M.D. 12/16/2019 12:57 PM
--- NOTE | 2019-12-16 13:59 | Hospitalist Progress Note ---
Date of Service December 16, 2019 Assessment & Plan (1) Left-sided muscle weakness: Mr. Farrukh Mancia is a 69 y/o male with past medical hx. of HTN, DM2 (not currently requiring treatment), CKD 3, BPH, Forgetfulness, HLD, sleep apnea who presented to [facility] ED with complaints of left arm weakness that started at 3PM. Physical Exam findings with left sided weakness. no sensory deficits, in the setting of HTN, HLD, and history that appears to support suspected poor compliance with outpatient medications from issues with memory. He appears to have left leg weakness as well. Imaging performed in ED. - Head CT - No acute intracranial abnormality. Atrophy and microvascular ischemic changes. - Head/Neck CTA w/ Focal moderate stenosis within the left P2 segment. Otherwise, no additional areas of stenosis, occlusion, or aneurysm identified within the [place]. No significant stenosis, occlusion, or dissection identified within the carotid or vertebral arteries. 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 2.4 x 1.6 cm acute infarct within the subcortical white matter of the right frontoparietal region involving the posterior right centrum semiovale. No acute hemorrhage. No mass effect. 2. Numerous foci of susceptibility artifact on the [place] sequence. These suggest old microbleeds or amyloid deposition. 3. No intracranial mass or pathologic enhancement. - LP ordered with cell counts, protein, glucose, cytology, CSF Lyme and VDRL (if possible, would add on autoimmune encephalitis panel but could also send serum panel if insufficient CSF) - LP ordered and appears to have an inflammatory pattern on initial review - Follow up in neurology clinic in 6-8 weeks - B12 1000mcg daily - Antiplatelet: ASA 81mg po daily (given dx of CAA, has an increased risk of microhemorrhages and lobar hemorrhages, there is about a nickel chance of him having an ischemic versus hemorrhagic stroke on aspirin, hence should continue aspirin 81 mg daily unless he does have an ICH in the future HTN - blood pressure 234/133 in the ER, given Hydralazine, Labetolol, and lisinopril in the ER - allowing for permissive HTN w/ goal of 180 - can transition to normotensive over 2-3 days - BP has been running systolic 160's - 220 - Hydralazine available for systolic BP > 220 diastolic > 120 - continue lisinopril 40 mg daily - started Coreg 3.125 JOSE on CKD - patient's Cr. was climbing - added fluid 80 ml/hr Thyroid w/ incidental finding - Multinodular thyroid gland on CT. Dominant nodule on the left measures 3.6 cm. - Follow-up nonemergent thyroid ultrasound can be used for further evaluation. DVT ppx: SCDs FENGI: nectar thick, nss ivf Dispo: Full admit Code: Full code Admission and Anticipated Discharge Date Admission Date: December 13, 2019 Supervising Physician Co-Signing Physician Notes I personally examined the patient and verified all vivas points of history and exam, discussed case, and agree with decision making with Dr Naik feeling tired. LP went OK. vitals noted nad heent nc at mmm L sided weakness. breathing unlabored. somewhat slurred speech similar to yesterday CVA - secondary risk reduction, rehab. ongoing PT/OT eval and treat, ongoing speech eval and treat. appreciate neuro input. ongoing management elevated BP - appears to have been predominantly baseline HTN and autoregulation in the face of cerebral ischemia - continue to manage (today increase coreg) DVT proph - heparin SQ Subjective Doing okay this morning. He had no questions or concerns. Review of Systems Review of Systems: Constitutional: denies fevers, chills Cardiac: denies chest pain, palpitations GI: admits vomiting overnight Pulm: admits some cough overnight, denies shortness of breath : catheter in place Physical Exam Constitutional: no acute distress Eyes: EOM intact bilaterally ENMT: external ear and nose normal, oropharynx normal Neck: normal visual inspection Respiratory: normal respiratory effort, lungs clear to auscultation Cardiovascular: RRR, no murmur, no edema Gastrointestinal (Abdomen): normal bowel sounds, soft, nontender, no hepatosplenomegaly Skin: no rashes, warm and dry Neurologic: no movement w/ left arm moves left leg against gravity left sided facial droop sensation intact bilaterally in the face and arms and hand Results & Data Results & Data ([facility]) Vital Signs (Past 12 Hours) Vital Signs Temp Pulse Pulse Resp BP Pulse Ox 12/16/19 11:23 36.7 C 75 20 175/96 H 96 12/16/19 08:00 84 12/16/19 07:59 36.7 C 80 20 188/102 H 95 12/16/19 04:29 82 12/16/19 03:18 83 18 94 12/16/19 02:46 36.5 C 79 22 165/102 H 97 CBC Results Results Complete Blood Count Results: RBC 4.65 M/uL (4.7-6.1) L 12/16/19 WBC 7.17 K/uL (4.8-10.8) 12/16/19 Hgb 15.3 g/dL (14.0-18.0) 12/16/19 Hct 44.3 % (42-52) 12/16/19 Plt Count 136 K/uL (130-400) 12/16/19 Chemistry (BMP) Results BMP Results: Sodium 144 mmol/L (136-145) 12/16/19 Potassium 3.7 mmol/L (3.5-5.1) 12/16/19 Chloride 112 mmol/L (98-107) H 12/16/19 BUN 26 mg/dl (7-18) H 12/16/19 Creatinine 1.75 mg/dl (0.6-1.4) H 12/16/19 Glucose 96 mg/dl (70-99) 12/16/19 Resident Activity Tracking Resident Involvement: Resident Care Provided Care Provided: Adult Hospital Medicine
[2019-12-16 15:19] LABS: CSF Glucose 71 mg/dl (40-70); Total Protein CSF 105.4 mg/dl (15-45)
[2019-12-16 15:42] LABS: CSF Chemistry Tube # 1
[2019-12-16 15:46] LABS: Appearance CSF Clear; CSF Count Tube # 3
[2019-12-16 15:47] LABS: CSF Xanthrochromic Xanthochromic
[2019-12-16 15:48] LABS: Red Blood Cell CSF (A) 44 /uL (0-); Red Blood Cell CSF (B) 48 /uL (0-); White Blood Cell CSF (B) 2 /uL (0-5)
[2019-12-16 15:49] LABS: White Blood Cell CSF (A) 1 /uL (0-5)
--- NOTE | 2019-12-16 16:04 | Fluoroscopy Report ---
FLUOROSCOPICALLY GUIDED LUMBAR PUNCTURE CLINICAL HISTORY: r/o inflammatory CSF (CAA angiitis) FLUOROSCOPY TIME: 2.2 minutes. NUMBER OF FLUOROSCOPIC IMAGES: 12 PROCEDURE: The procedure, risks and benefits were discussed with the patient including the risk of s shantelle headache, bleeding and infection. The patient agreed to the procedure and informed written cons ent was obtained. The procedure was performed by Dr. Chavez following a timeout. The left L3-L4 in terlaminar space was targeted. Skin overlying the space was prepped and draped in sterile fashion and local anesthesia was achieved with 1% lidocaine. Under intermittent fluoroscopic guidance, a binge, 22-gauge spinal Corrected to the thecal sac. There was immediate return of cerebrospinal fluid which is slightly bloo d-tinged. Fluid quickly cleared. Total of 8 cc of CSF was collected in 4 vials and sent to the [facility] as ordered. The needle was removed. The patient tolerated the procedure well and no immediate co mplications were evident. IMPRESSION: Successful fluoroscopically guided lumbar puncture with collection of 8 cc of CSF which w as sent to the laboratory for analysis. CSF initially blood-tinged but quickly cleared. ACT 112: Negative or not required by law. Electronically signed by: Jr Chavez M.D. 12/16/2019 3:15 PM
--- NOTE | 2019-12-16 16:52 | Neurology Progress Note ---
Date of Service December 16, 2019 Assessment & Plan (1) Stroke: Farrukh Mancia is a 69 yo man w/ PMH of HTN, DM, CALVIN, CKDIII, PACs and h/o memory problems who p/t [facility] after acute onset of L-sided weakness. Symptom localization: right parietal lobe Stroke mechanism: cardioembolic Stroke WorkUp: - CT head: no hemorrhage or hypodensity, +SVID - CTA head/neck: Diffuse intracranial atherosclerosis, mild to moderate left P2 stenosis - MRI brain: Acute infarct in the right parietal lobe, mild generalized atrophy, moderate to severe small vessel disease. - TTE: EF 55-60%, mild LVH, no PFO noted - Telemetry: pending - A1c: 5.2 - FLP: 111 - Troponin, TSH: negative, WNL - CSF: 1 WBC/44 RBC/71 glucose/105.4 protein Stroke Management: - Acute treatment: ASA - Continuous cardiac monitoring, 30 day event monitor on d/c - Vitals, Neurochecks, NIHSS per unit routine - BP parameters: SBP CAP 180, restart home BP meds - Consult speech, PT, OT for supportive management - Will appliance counselor concerning stroke education, smoking cessation, healthy diet, physical activity, weight loss - Follow up with PCP for assistance with outpatient goals (BP <130/80, LDL <70, A1c <7) - Follow up in neurology clinic in 6-8 weeks (probably with KONSTANTIN Vega) - B12 1000mcg daily Secondary Stroke Prevention: - Antiplatelet: ASA 81mg po daily (given dx of CAA, has an increased risk of microhemorrhages and lobar hemorrhages, there is about an equal chance of him having an ischemic versus hemorrhagic stroke on aspirin, hence should continue aspirin 81 mg daily unless he does have an ICH in the future and then re-assess) - Anticoagulation: Not indicated at this time - Statin: will withhold given increased risk of ICH with CAA diagnosis HTN: - Okay to restart home medications with goal of lowering BP to normotension over next 3-4 days FEN/GI: - Diet: NPO until cleared by Speech evaluation, would consider placement of duotube or NGT for nutrition while he awaits placement - Monitor lytes and replete PRN Glucose Control: - Sliding scale insulin and accuchecks per primary team to avoid hyperglycemia Thank you for this interesting consult. Plan of care was discussed with primary team. Please call with any questions. (2) B12 deficiency: (3) Mild cognitive impairment: (4) Hypertension: (5) Chronic kidney disease, stage III (moderate): (6) Type 2 diabetes mellitus: (7) Obstructive sleep apnea: Admission and Anticipated Discharge Date Admission Date: December 13, 2019 Subjective NAEs overnight. Had LP performed this morning that was notable for CSF WBC 1, RBC 44, glucose 71, protein elevated 105.4 CSF VDRL and Lyme pending. Review of Systems Review of Systems: 14 point review of systems completed and negative except as in HPI. Results & Data ([facility]) Vital Signs (Past 12 Hours) Vital Signs Temp Pulse Pulse Resp BP Pulse Ox 12/16/19 15:04 36.7 C 72 23 182/94 H 95 12/16/19 11:23 36.7 C 75 20 175/96 H 96 12/16/19 08:00 84 12/16/19 07:59 36.7 C 80 20 188/102 H 95 Exam (Neuro) Physical Exam: General Exam: GEN: NAD, lying down in examination bed. HEENT: No conjunctival injection, no rhinorrhea CV: RRR on monitor, no significant edema. PULM: Nonlabored respirations on room air. Neuro Exam: MS: Awake and Alert. Oriented to person, place, and month/year. Speech fluent and appropriate without dysarthria or paraphasic errors. Language intact including naming, comprehension, repetition. Cognition and memory mildly impaired. Attention intact. No neglect today. CN: Visual salazar appear full, + blink to threat bilaterally. No extinction to double simultaneous stimuli. No optic disc edema on fundoscopic exam. PERRLA OU. EOMI without nystagmus. Facial sensation intact to LT. L FP. Hearing intact to conversation. Uvula midline with symmetric palatal elevation. Shoulder shrug normal. Tongue midline. MOTOR: Normal bulk and tone. No pronator drift in RUE. LUE no antigravity, RUE antigravity without drift. Bilateral lower extremities antigravity with no drift noted on the left or right side. REFLEXES: 1+ at biceps, triceps, brachioradialis, 2+ patella, and 1+ Achilles bilaterally. Flexor plantar responses bilaterally. SENSORY: Intact to LT throughout, + extinction to double simultaneous stimuli. Vibration minimally diminished in feet. COORDINATION: No dysmetria or ataxia on [id number]-xocq in the right upper extremity. Decreased speed and amplitude of right hand finger taps GAIT: Deferred due to physical status. NIH STROKE SCALE 1A. Level of Consciousness (0-3) = 0 1B. LOC Questions (0-2) = 0 1C. LOC Commands (0-2) = 0 2. Best Horizontal Gaze (0-2) = 0 3. Visual [place]azar (0-3) = 0 4. Facial Palsy (0-3) = 2 5. Motor Arm Right (0-4) = 0 Left (0-4) = 3 6. Motor Leg Right (0-4) = 0 Left (0-4) = 0 7. Limb Ataxia (0-2) = 0 8. Sensory (0-2) = 0 9. Best Language (0-3) = 0 10. Dysarthria (0-2) = 1 11. Extinction and Inattention (0-2) = 0 NIHSS TOTAL = 6 PG Care Time/CCT Total # of Minutes Spent Total Time Spent with Patient: Total time spent is greater than 50% in coordination of care (as documented) at patient's floor/unit and/or counseling patient: Coding Level of Care Code 55334 Subseq Hosp Care Lvl 3 Diagnoses Stroke I63.9 B12 deficiency E53.8 Mild cognitive impairment G31.84 Hypertension I10 Chronic kidney disease, stage III (moderate) N18.3 Type 2 diabetes mellitus E11.9 Obstructive sleep apnea G47.33
--- NOTE | 2019-12-16 19:29 | Billing Data ---
Date of Service December 16, 2019 Coding Level of Care Code 59049 Subseq Hosp Care Lvl 3
[2019-12-16] MEDS: carvediloL 6.25 MG TAB PO SCH (20:56)
[2019-12-17] MEDS: HydrALAZINE HCL 20 MG/ML VIAL IV PRN ×2 (00:01→03:40)
--- NOTE | 2019-12-17 06:14 | Hospitalist Progress Note ---
Date of Service December 17, 2019 Assessment & Plan (1) Left-sided muscle weakness: Mr. Farrukh Mancia is a 69 y/o male with past medical hx. of HTN, DM2 (not currently requiring treatment), CKD 3, BPH, Forgetfulness, HLD, sleep apnea who presented to [facility] ED with complaints of left arm weakness that started at 3PM. Physical Exam findings with left sided weakness. no sensory deficits, in the setting of HTN, HLD, and history that appears to support suspected poor compliance with outpatient medications from issues with memory. He appears to have left leg weakness as well, has been found to have CAA and an LP was done to evaluate for inflammation of CSF. Stroke - Stroke admit orders utilized per protocols/neuro checks/nursing stroke protocols - Speech evaluated and placed on nectar thick and minced moist - Swallowing studies with findings of aspiration of thin liquids - Neurology consulted: concern for CAA after review of MRI, will not be initiating statin due to CAA - LP ordered with cell counts, protein, glucose, cytology, CSF Lyme and VDRL (if possible, would add on autoimmune encephalitis panel but could also send serum panel if insufficient CSF) - LP w/ clear, pale paco, xanthochromic, protein 105, Glucose 71 - Antiplatelet: ASA 81mg po daily (given dx of CAA, has an increased risk of microhemorrhages and lobar hemorrhages, there is about a nickel chance of him having an ischemic versus hemorrhagic stroke on aspirin, hence should continue aspirin 81 mg daily unless he does have an ICH in the future - B12 1000mcg daily - Follow up in neurology clinic in 6-8 weeks Imaging - Head CT - No acute intracranial abnormality. - Head/Neck CTA w/ Focal moderate stenosis within the left P2 segment. Otherwise, no additional areas of stenosis, occlusion, or aneurysm identified within the [place]. No significant stenosis, occlusion, or dissection identified within the carotid or vertebral arteries. - MRI Brain: 1. 2.4 x 1.6 cm acute infarct within the subcortical white matter of the right frontoparietal region involving the posterior right centrum semiovale. No acute hemorrhage. No mass effect. 2. Numerous foci of susceptibility artifact on the [place] sequence. These suggest old microbleeds or amyloid deposition. HTN - blood pressure 234/133 in the ER, given Hydralazine, Labetolol, and lisinopril in the ER - Transitioned to normotensive goal - BP has been running systolic 160's - 200 - Hydralazine available for systolic BP > 220 diastolic > 120 - continue lisinopril 40 mg daily - reinitiated Hydralazine Q12 - increased Coreg JOSE on CKD - patient's Cr. was climbing, currently 1.5 - added fluid 80 ml/hr Thyroid w/ incidental finding - Multinodular thyroid gland on CT. Dominant nodule on the left measures 3.6 cm. - Follow-up nonemergent thyroid ultrasound can be used for further evaluation. DVT ppx: SCDs FENGI: nectar thick, nss ivf Dispo: Full admit Code: Full code Admission and Anticipated Discharge Date Admission Date: December 13, 2019 Supervising Physician Co-Signing Physician Notes I personally examined the patient and verified all vivas points of history and exam, discussed case, and agree with decision making with Dr Naik d/w neuro. input appreciated. pt eating lunch and doing reasonably well. vitals noted nad heent nc at mmm L sided weakness ongoing. breathing unlabored. ongiong slurred speech similar to yesterday CVA - secondary risk reduction, rehab. ongoing PT/OT eval and treat, ongoing speech eval and treat. appreciate neuro input. ongoing management (obviously somewhat balanced between stroke and CAA) elevated BP - appears to have been predominantly baseline HTN and autoregulation in the face of cerebral ischemia - continue to manage (resumed hydralazine, will get renal doppler to eval for RANDELL. would lke to start thiazide, but with elevated creatinine may need to consider just ongoing escalation of coreg, or possibly adding calcium channel kamar) DVT proph - heparin SQ Subjective Doing well this morning. He was having increased gas, last bowel movement was the night prior. No questions for me. Daughter was updated of the LP results and that we are pursuing a renal artery ultrasound to further evaluate his HTN. Review of Systems Review of Systems: Constitutional: denies fever, admits chills Cardiac: denies chest pain, admits palpitations overnight Pulm: admits cough, denies shortness of breath Neuro: slight headache Physical Exam Physical Exam: Constitutional - no acute distress Eyes - EOM intact bilaterally ENMT - external ear and nose normal, oropharynx normal Neck - normal visual inspection Respiratory - normal respiratory effort, lungs clear to auscultation Cardiovascular - RRR, no murmur, no edema Gastrointestinal (Abdomen) - normal bowel sounds, soft, nontender, no hepatosplenomegaly Skin - no rashes, warm and dry Neurologic: - no movement w/ left arm - moves left leg against gravity - left sided facial droop - sensation intact bilaterally in the face and arms and hand Results & Data Results & Data ([facility]) Vital Signs (Past 12 Hours) Vital Signs Temp Pulse Pulse Resp BP Pulse Ox 12/17/19 03:32 36.4 C L 86 18 205/106 H 92 12/16/19 23:48 36.5 C 74 18 192/104 H 95 12/16/19 23:00 75 12/16/19 19:01 37.3 C 79 21 191/106 H 96 CBC Results Results Complete Blood Count Results: RBC 4.81 M/uL (4.7-6.1) 12/17/19 WBC 7.73 K/uL (4.8-10.8) 12/17/19 Hgb 16.4 g/dL (14.0-18.0) 12/17/19 Hct 45.3 % (42-52) 12/17/19 Plt Count 152 K/uL (130-400) 12/17/19 Chemistry (BMP) Results BMP Results: Sodium 141 mmol/L (136-145) 12/17/19 Potassium 3.5 mmol/L (3.5-5.1) 12/17/19 Chloride 110 mmol/L (98-107) H 12/17/19 BUN 23 mg/dl (7-18) H 12/17/19 Creatinine 1.56 mg/dl (0.6-1.4) H 12/17/19 Glucose 112 mg/dl (70-99) H 12/17/19 Resident Activity Tracking Resident Involvement: Resident Care Provided Care Provided: Adult Hospital Medicine
[2019-12-17] MEDS ORDERED: FUROSEMIDE 40 MG in SYRINGE 0 ML IV SCH (06:30)
[2019-12-17] MEDS: carvediloL 6.25 MG TAB PO SCH ×2 (07:45→20:33)
[2019-12-17] MEDS: lisinopriL 40 MG TAB PO SCH (07:45)
[2019-12-17] MEDS: HEPARIN SOD 5,000 UNIT/0.5 ML VIAL SQ SCH ×2 (07:46→20:33)
[2019-12-17 08:26] LABS: Hematocrit (blood only) 45.3 % (42-52); Hemoglobin 16.4 g/dL (14.0-18.0); Mean Corpuscular Hemoglobin 34.1 pg (25-34); Mean Corpuscular Hgb Conc 36.2 g/dL (32-36); Mean Corpuscular Volume 94.2 fL (80-100); Mean Platelet Volume 10.8 fL (7.4-10.4); Platelet Count 152 K/uL (130-400); RDW Coefficient of Variation 13.9 % (11.5-14.5); RDW Standard Deviation 47.8 fL (36.4-46.3); Red Blood Count 4.81 M/uL (4.7-6.1); White Blood Count 7.73 K/uL (4.8-10.8)
[2019-12-17 08:55] LABS: BUN Creatinine Ratio 14.6 (10-20); Calcium 9.1 mg/dl (8.5-10.1); Creatinine Clr Calc Pharmacy 48.4 ml/min; Est GFR (African American) 51.4; Est GFR (Non-African American) 44.3; Potassium 3.5 mmol/L (3.5-5.1)
[2019-12-17] MEDS: ASPIRIN 81 MG ECTAB PO SCH (11:29)
[2019-12-17] MEDS: HydrALAZINE TAB 50 MG TAB PO SCH ×2 (11:29→20:33)
--- NOTE | 2019-12-17 18:13 | Billing Data ---
Date of Service December 17, 2019 Coding Level of Care Code 46116 Subseq Hosp Care Lvl 3
--- NOTE | 2019-12-17 19:04 | Ultrasound Report ---
US duplex renal artery HISTORY: 69 years-old Male uncontrolled HTN acute hypertension COMPARISON: Renal ultrasound 12/08/2019, CT abdomen pelvis 07/31/2017 TECHNIQUE: Multiple real-time sonographic images of the bilateral renal vessels were obtained assessi ng grayscale appearance, color and spectral flow FINDINGS: Normal plug flow noted within the aorta, peak systolic velocity of 61.27 m/s. Right kidney measures 9.8 cm in length. No elevated peak systolic velocities within the right renal a rtery. Patent renal vein. Resistive index measures up to 0.7 within the arcuate branches. The left kidney measures 10.3 cm in length. No elevated peak systolic velocities within the left kidn ey. Patent renal vein. Resistive index measures up to 0.7 within the arcuate branches. IMPRESSION: 1. No evidence of renal artery stenosis. ACT 112: Negative or not required by law. The above report was generated using voice recognition software. It may contain grammatical, syntax o r spelling errors. Electronically signed by: Spencer Caceres M.D. 12/17/2019 7:02 PM
[2019-12-18] MEDS: lisinopriL 40 MG TAB PO SCH (07:58)
[2019-12-18] MEDS: HydrALAZINE TAB 50 MG TAB PO SCH ×2 (07:58→20:14)
[2019-12-18] MEDS: ASPIRIN 81 MG ECTAB PO SCH (07:58)
[2019-12-18] MEDS: carvediloL 6.25 MG TAB PO SCH (07:58)
[2019-12-18] MEDS: HEPARIN SOD 5,000 UNIT/0.5 ML VIAL SQ SCH ×2 (07:59→20:14)
[2019-12-18 09:38] LABS: Hematocrit (blood only) 43.4 % (42-52); Hemoglobin 15.3 g/dL (14.0-18.0); Mean Corpuscular Hgb Conc 35.3 g/dL (32-36); Mean Corpuscular Volume 93.5 fL (80-100); Mean Platelet Volume 10.6 fL (7.4-10.4); Platelet Count 143 K/uL (130-400); RDW Coefficient of Variation 13.9 % (11.5-14.5); RDW Standard Deviation 47.6 fL (36.4-46.3); Red Blood Count 4.64 M/uL (4.7-6.1); White Blood Count 5.94 K/uL (4.8-10.8)
--- NOTE | 2019-12-18 09:59 | CT Scan Report ---
CT SCAN OF THE BRAIN WITHOUT IV CONTRAST CLINICAL HISTORY: Stroke. Worsening symptoms. COMPARISON STUDY: CT of the brain dated 12/13/2019. TECHNIQUE: Unenhanced axial CT scan of the brain is performed from the vertex to the skull base. A do se lowering technique was utilized adhering to the principles of ALARA. CT DOSE: 691.05 mGy.cm FINDINGS: Brain parenchyma: There are age-related involutional changes noting moderate to advanced subcortical and periventricular microangiopathic change. There is focal loss of rogers-white matter differentiatio n identified in the high right parietal lobe (axial image #26) which represents a change from 12/13/19 20. This is consistent with a subacute/evolving infarct. There is no hemorrhage or mass effect. No ex tra-axial fluid collection is seen. Ventricles, sulci, cisterns: Prominent secondary to involutional change. Intracranial vasculature: There is atherosclerotic calcification of the cavernous carotid and vertebr al arteries. Calvarium: Unremarkable. Sinuses and mastoids: The visualized paranasal sinuses are clear. The mastoid air cells are well pneu matized. Orbits: The bony orbits are grossly intact. IMPRESSION: 1. There is an evolving cortical infarct identified in the high right parietal lobe. 2. No hemorrhage or mass effect is identified. ACT 112: Negative or not required by law. Electronically signed by: Huang Stone M.D. 12/18/2019 9:57 AM
[2019-12-18 10:08] LABS: BUN Creatinine Ratio 16.2 (10-20); Calcium 8.7 mg/dl (8.5-10.1); Creatinine Clr Calc Pharmacy 45.4 ml/min; Est GFR (Non-African American) 41.4; Potassium 3.7 mmol/L (3.5-5.1)
--- NOTE | 2019-12-18 15:08 | Hospitalist Progress Note ---
Date of Service December 18, 2019 Assessment & Plan (1) Left-sided muscle weakness: Mr. Farrukh Mancia is a 69 y/o male with past medical hx. of HTN, DM2 (not currently requiring treatment), CKD 3, BPH, Forgetfulness, HLD, sleep apnea who presented to [facility] ED with complaints of left arm weakness that started at 3PM. Physical Exam findings with left sided weakness. no sensory deficits, in the setting of HTN, HLD, and history that appears to support suspected poor compliance with outpatient medications from issues with memory. He appears to have worsening left leg weakness, in the setting of CVA w/ CAA. Given progressive symptoms w/ leg weakness and decreased sensation this morning, obtained CT w/o contrast to evaluate for hemorrhagic conversion, found to be negative, symptoms likely due to continued edema. Right parietal stroke, with CAA - Stroke admit orders utilized per protocols/neuro checks/nursing stroke protocols - Speech evaluated and placed on nectar thick and minced moist - Swallowing studies with findings of aspiration of thin liquids - Neurology consulted: meets criteria for CAA with MRI, will not be initiating statin due to this - LP w/ clear, pale paco, xanthochromic, protein 105, Glucose 71. pending: Lyme and VDRL - Per neurology, "Antiplatelet: ASA 81mg po daily (given dx of CAA, has an increased risk of microhemorrhages and lobar hemorrhages, there is about a nickel chance of him having an ischemic versus hemorrhagic stroke on aspirin, hence should continue aspirin 81 mg daily unless he does have an ICH in the future)" - continue B12 1000mcg daily - Follow up in neurology clinic in 6-8 weeks Imaging - Head CT - No acute intracranial abnormality. - Head/Neck CTA w/ Focal moderate stenosis within the left P2 segment. Otherwise, no additional areas of stenosis, occlusion, or aneurysm identified within the [place]. No significant stenosis, occlusion, or dissection identified within the carotid or vertebral arteries. - MRI Brain: 1. 2.4 x 1.6 cm acute infarct within the subcortical white matter of the right frontoparietal region involving the posterior right centrum semiovale. No acute hemorrhage. No mass effect. 2. Numerous foci of susceptibility artifact on the [place] sequence. These suggest old microbleeds or amyloid deposition. - CT head w/o (12/17) evolving right parietal infarct with out signs of hemorrhage HTN - blood pressure 234/133 in the ER, given Hydralazine, Labetolol, and lisinopril in the ER - Transitioned to normotensive goal, although appears to be resistant to attempt at control, in evaluating secondary causes of hypertension patient had a duplex of the renal arteries and this did not show any stenosis - SBP has been running systolic 150's - 180's - Hydralazine available for systolic BP > 200 diastolic > 120 - continue lisinopril 40 mg daily - continue Hydralazine Q12H - increased Coreg JOSE on CKD - patient's Cr. was climbing, currently 1.65 - added fluid 80 ml/hr Thyroid w/ incidental finding - Multinodular thyroid gland on CT. - Dominant nodule on the left measures 3.6 cm. - Follow-up nonemergent thyroid ultrasound can be used for further evaluation. Arroyo - Patient had a Arroyo placed at admission, there were concerns for safety given poor judgement, as well as concern for incontinence w/ decreased sensation and ability to move. - continue to evaluate the need for Arroyo and discontinue as soon as safely possible DVT ppx: heparin SQ FENGI: nectar thick, nss ivf Code: Full code Admission and Anticipated Discharge Date Admission Date: December 13, 2019 Supervising Physician Co-Signing Physician Notes I personally examined the patient and verified all vivas points of history and exam, discussed case, and agree with decision making with Dr Naik leg more weak - CT done by Dr Naik - no bleed - just evolution of stroke. he also notes feeling a little sob frequently. vitals noted nad heent nc at mmm L sided weakness ongoing - L leg weaker. breathing unlabored and overall cta b/l no rr//w moderate effort. ongiong slurred speech similar to yesterday CVA - secondary risk reduction, rehab. ongoing PT/OT eval and treat, ongoing speech eval and treat. appreciate neuro input. ongoing management (obviously somewhat balanced between stroke and CAA)(asa, BP control; can't use statin/dual antiplatelets due to bleed risk of CAA) - suspect leg weakness is due to tono-infarct edema > extension of original infarct. continue to follow- rehab once available. continue to titrate BP meds elevated BP - renal artery US without stenosis. continue to titrate BP meds DVT proph - heparin SQ Subjective Doing well this morning, he was not able to move his left leg that he noticed after the SCD's were put on the night before. No questions for me. Daughter last updated 12/16. Review of Systems Review of Systems: Constitutional: denies fever, admits chills Cardiac: denies chest pain, admits palpitations overnight Pulm: admits cough, denies shortness of breath Neuro: denies headache Physical Exam Physical Exam: Constitutional - no acute distress Eyes - EOM intact bilaterally ENMT - external ear and nose normal, oropharynx normal Neck - normal visual inspection Respiratory - normal respiratory effort, lungs clear to auscultation Cardiovascular - RRR, no murmur, no edema Gastrointestinal (Abdomen) - normal bowel sounds, soft, nontender, no hepatosplenomegaly Skin - no rashes, warm and dry Neurologic: - no movement w/ left arm - no movement w/ left leg, decreased sensation to light touch - left sided facial droop - sensation intact bilaterally in the face Results & Data Results & Data ([facility]) Vital Signs (Past 12 Hours) Vital Signs Temp Pulse Pulse Resp BP Pulse Ox 12/18/19 08:00 67 12/18/19 07:44 36.5 C 71 22 179/102 H 95 12/18/19 03:29 36.5 C 70 18 163/87 H 98 CBC Results Results Complete Blood Count Results: RBC 4.64 M/uL (4.7-6.1) L 12/18/19 WBC 5.94 K/uL (4.8-10.8) 12/18/19 Hgb 15.3 g/dL (14.0-18.0) 12/18/19 Hct 43.4 % (42-52) 12/18/19 Plt Count 143 K/uL (130-400) 12/18/19 Chemistry (BMP) Results BMP Results: Sodium 141 mmol/L (136-145) 12/18/19 Potassium 3.7 mmol/L (3.5-5.1) 12/18/19 Chloride 109 mmol/L (98-107) H 12/18/19 BUN 27 mg/dl (7-18) H 12/18/19 Creatinine 1.65 mg/dl (0.6-1.4) H 12/18/19 Glucose 174 mg/dl (70-99) H 12/18/19 Resident Activity Tracking Resident Involvement: Resident Care Provided Care Provided: Adult Hospital Medicine
[2019-12-18] MEDS ORDERED: ALBUT/IPRATROP 3MG/0.5MG NEB 3 ML VIAL NEB PRN ×2 (17:20→18:24)
--- NOTE | 2019-12-18 17:24 | Billing Data ---
Date of Service December 18, 2019 Coding Level of Care Code 21339 Subseq Hosp Care Lvl 3
[2019-12-18] MEDS ORDERED: ALBUT/IPRATROP 3MG/0.5MG NEB 3 ML VIAL NEB STA (18:24)
[2019-12-18] MEDS: carvediloL 12.5 MG TAB PO SCH (20:13)
[2019-12-18] MEDS: HydrALAZINE HCL 20 MG/ML VIAL IV PRN (20:17)
[2019-12-19] MEDS: HydrALAZINE TAB 50 MG TAB PO SCH ×2 (08:06→21:14)
[2019-12-19] MEDS: ASPIRIN 81 MG ECTAB PO SCH (08:07)
[2019-12-19] MEDS: carvediloL 12.5 MG TAB PO SCH ×2 (08:07→21:15)
[2019-12-19] MEDS: lisinopriL 40 MG TAB PO SCH (08:07)
[2019-12-19] MEDS: HEPARIN SOD 5,000 UNIT/0.5 ML VIAL SQ SCH ×2 (08:07→21:15)
[2019-12-19 08:40] LABS: BUN Creatinine Ratio 16.9 (10-20); Calcium 8.8 mg/dl (8.5-10.1); Creatinine Clr Calc Pharmacy 41.1 ml/min; Est GFR (African American) 47.7; Est GFR (Non-African American) 41.1; Potassium 3.7 mmol/L (3.5-5.1)
[2019-12-19] MEDS: AMLODIPINE BESYLATE 5 MG TAB PO SCH (11:57)
--- NOTE | 2019-12-19 13:21 | Hospitalist Progress Note ---
Date of Service December 19, 2019 Assessment & Plan (1) Left-sided muscle weakness: Mr. Farrukh Mancia is a 69 y/o male with past medical hx. of HTN, DM2, CKD stage III, BPH, Forgetfulness, HLD, sleep apnea who presented to [facility] ED with complaints of left arm weakness. Physical Exam findings with left sided weakness. no sensory deficits, in the setting of HTN, HLD, and history that appears to support suspected poor compliance with outpatient medications from issues with memory. Patient was found to have CVA on imaging as well as CAA. Right parietal stroke, with Cerebral amyloid angiopathy (CAA) Imaging - Head CT - No acute intracranial abnormality. Head/Neck CTA w/ Focal moderate stenosis within the left P2 segment. Otherwise, no additional areas of stenosis, occlusion, or aneurysm identified within the [place] of [place]. No significant stenosis, occlusion, or dissection identified within the carotid or vertebral arteries. MRI Brain: 2.4 x 1.6 cm acute infarct within the subcortical white matter of the right frontoparietal region involving the posterior right centrum semiovale. Numerous foci of susceptibility artifact on the [place] sequence. These suggest old microbleeds or amyloid deposition. - Stroke admit orders utilized per protocols/neuro checks/nursing stroke protocols - Swallowing studies with findings of aspiration of thin liquids, Speech evaluated and placed on nectar thick and minced moist - Neurology consulted: meets criteria for CAA with MRI, will not be initiating statin due to this - LP w/ clear, pale paco fluid, xanthochromic, protein 105, Glucose 71. pending: Lyme and VDRL - Per neurology, "Antiplatelet: ASA 81mg po daily (given dx of CAA, has an increased risk of microhemorrhages and lobar hemorrhages, there is about a nickel chance of him having an ischemic versus hemorrhagic stroke on aspirin, hence should continue aspirin 81 mg daily unless he does have an ICH in the future)" - continue B12 1000mcg daily - Follow up in neurology clinic in 6-8 weeks HTN - blood pressure 234/133 in the ER, given Hydralazine, Labetolol, and lisinopril in the ER - Transitioned to normotensive goal, although appears to be resistant to attempt at control, in evaluating secondary causes of hypertension patient had a duplex of the renal arteries and this did not show any stenosis - patient does have sleep apnea and has not used CPAP while hospitalized - SBP has been running 150's - 170's - Hydralazine available for systolic BP > 200 diastolic > 120 - continue lisinopril 40 mg daily - continue Hydralazine Q12H for now. consider d/c if amlodipine more effective. - increased Coreg - added Amlodipine 5 mg QAM Sleep apnea - To encourage compliance as outpatient. - Will help with BP control as well. JOSE on CKD - patient's Cr. currently 1.[address] - Dominant nodule on the left measures 3.6 cm. - Follow-up nonemergent thyroid ultrasound can be used for further evaluation. Urinary retention/incontinence - Patient had a Arroyo placed at admission, there were concerns for safety given poor judgement, as well as concern for incontinence w/ decreased sensation and ability to move. - cath bag with grossly bloody urine today - transitioned to a condom cath today DVT ppx: heparin SQ FENGI: nectar thick, nss ivf Code: Full code Admission and Anticipated Discharge Date Admission Date: December 13, 2019 Supervising Physician Co-Signing Physician Notes Resident Physician Supervision Note: I independently interviewed and examined the patient and verified the vivas history and physical, reviewed labs and image studies, discussed the case with the resident Dr. Naik and agree with the findings and care plan. Subjective Doing well this morning, he had improvement where he was able to wiggle his left toe. He continues to be optimistic about his course and I encouraged him to engage as much as possible with therapy. Daughter last updated 12/16. Attempted to call patient's brother today, will continue to attempt to connect with him. Review of Systems Review of Systems: Constitutional: denies fever, admits chills Cardiac: denies chest pain, admits palpitations overnight Pulm: admits cough, denies shortness of breath Neuro: denies headache Physical Exam Physical Exam: Constitutional - no acute distress Eyes - EOM intact bilaterally ENMT - external ear and nose normal, oropharynx normal Neck - normal visual inspection Respiratory - normal respiratory effort, lungs clear to auscultation Cardiovascular - RRR, no murmur, no edema Gastrointestinal (Abdomen) - normal bowel sounds, soft, nontender, no hepatosplenomegaly Skin - no rashes, warm and dry Neurologic: - no movement w/ left arm - left leg, able to wiggle toe, intact sensation to light touch - left sided facial droop - sensation intact bilaterally in the face Constitutional: no acute distress Eyes: EOM intact bilaterally ENMT: external ear and nose normal, oropharynx normal Neck: normal visual inspection Respiratory: normal respiratory effort, lungs clear to auscultation Cardiovascular: RRR, no murmur, no edema Gastrointestinal (Abdomen): normal bowel sounds, soft, nontender, no hepatosplenomegaly Skin: no rashes, warm and dry Results & Data Results & Data ([facility]) Vital Signs (Past 12 Hours) Vital Signs Temp Pulse Resp BP Pulse Ox 12/19/19 13:13 163/90 H 12/19/19 11:37 36.5 C 72 20 163/97 H 97 12/19/19 09:54 161/82 H 12/19/19 07:39 36.9 C 83 20 165/106 H 96 12/19/19 04:13 37.0 C 71 20 174/95 H 95 CBC Results Results Complete Blood Count Results: RBC 4.61 M/uL (4.7-6.1) L 12/20/19 WBC 6.24 K/uL (4.8-10.8) 12/20/19 Hgb 15.2 g/dL (14.0-18.0) 12/20/19 Hct 43.4 % (42-52) 12/20/19 Plt Count 148 K/uL (130-400) 12/20/19 Chemistry (BMP) Results BMP Results: Sodium 143 mmol/L (136-145) 12/19/19 Potassium 3.7 mmol/L (3.5-5.1) 12/19/19 Chloride 110 mmol/L (98-107) H 12/19/19 BUN 28 mg/dl (7-18) H 12/19/19 Creatinine 1.66 mg/dl (0.6-1.4) H 12/19/19 Glucose 101 mg/dl (70-99) H 12/19/19 Resident Activity Tracking Resident Involvement: Resident Care Provided Care Provided: Adult [facility] Medicine
[2019-12-20 07:29] LABS: Hematocrit (blood only) 43.4 % (42-52); Hemoglobin 15.2 g/dL (14.0-18.0); Mean Corpuscular Volume 94.1 fL (80-100); Mean Platelet Volume 10.5 fL (7.4-10.4); Platelet Count 148 K/uL (130-400); RDW Coefficient of Variation 13.6 % (11.5-14.5); RDW Standard Deviation 46.7 fL (36.4-46.3); Red Blood Count 4.61 M/uL (4.7-6.1); White Blood Count 6.24 K/uL (4.8-10.8)
[2019-12-20 08:07] LABS: BUN Creatinine Ratio 16.1 (10-20); Calcium 8.9 mg/dl (8.5-10.1); Creatinine Clr Calc Pharmacy 45.2 ml/min; Est GFR (Non-African American) 41.4; Potassium 3.6 mmol/L (3.5-5.1)
[2019-12-20] MEDS: AMLODIPINE BESYLATE 5 MG TAB PO SCH (08:36)
[2019-12-20] MEDS: carvediloL 12.5 MG TAB PO SCH (08:36)
[2019-12-20] MEDS: lisinopriL 40 MG TAB PO SCH (08:37)
[2019-12-20] MEDS: ASPIRIN 81 MG ECTAB PO SCH (08:37)
[2019-12-20] MEDS: HEPARIN SOD 5,000 UNIT/0.5 ML VIAL SQ SCH (08:38)
[2019-12-20] MEDS: HydrALAZINE TAB 50 MG TAB PO SCH (08:38)
--- NOTE | 2019-12-20 09:18 | Neurology Progress Note ---
Date of Service December 20, 2019 Assessment & Plan (1) Acute CVA (cerebrovascular accident): (2) Acute left hemiparesis: (3) Hypertensive emergency: (4) Cerebral amyloid angiopathy: Acute right parietal stroke initiating December 11 associated with severe hypertension seen in the emergency room December 12. Etiology of the stroke is likely thrombotic and there is no evidence specifically to implicate cardiac embolus. Clinically he is stable from a neurologic standpoint with left hemiparesis, face and arm greater than leg. He has no obvious sensory deficits or visual disturbance. His speech is soft/weak but does not have any obvious a facial or dysarthria. MRI of the brain reveals a relatively small high right parietal stroke likely pure motor. Additional MRI sequences showed changes consistent with old micro hemorrhages , and possible cerebral amyloid angiopathy. There was also moderate atrophy in general with moderate old small vessel ischemic changes diffusely. I am not convinced this patient has cerebral amyloid angiopathy and he certainly does not have any history of lobar or focal intercerebral hemorrhage. The old cerebral micro hemorrhages seen on the SWAN sequence may be secondary to hypertension. The patient had significant hypertension which is somewhat improved (although still hi with a mean arterial pressure of 108 ). Total cholesterol was 192 and triglycerides 208. Recommendations: 1. increase activity as able and continue with physical, occupational, and speech therapy. He would make an excellent rehabilitation hospital candidate in my opinion. 2. in lieu of the possible cerebral amyloid angiopathy diagnosis, treatment is typically to avoid anticoagulants and antiplatelet medication, because of the increased hemorrhagic risk. Because of his significant and longstanding hypertension, he is at risk of small vessel ischemic disease. Antiplatelet medication would be indicated. Therefore, he remains on 81 mg aspirin tablet daily. If not for the possible cerebral amyloid angiography, I would have switched him from aspirin to 75 mg clopidogrel daily. 3. normally he would be a high dose statin candidate in lieu of his lipid parameters and stroke. However, there is data that high dose statins can increased hemorrhagic risk so I would avoid this for now in this patient. consideration could be given to a low-dose statin. 4. hemoglobin A1c was normal at 5.2. 5. control blood pressure as you are doing, aiming for a mean arterial pressure of approximately 100. Overall, I spent a total of 35 minutes with this case including review of records, review of MRI films, direct evaluation the patient at bedside, and discussing the case with patient at bedside, RN at bedside, and Drs. Ortiz and Gumaro, including differential diagnosis and treatment options. Admission and Anticipated Discharge Date Admission Date: December 13, 2019 Subjective No complaint of pain or headache. He is not dizzy.He continues to have weakness on the left side. Nursing reports no new issues and he is stable. Blood pressure is 156/84 and he is afebrile. This morning, CBC and Chem profile were unremarkable except for an elevated BUN and creatinine. MRI of the brain showed a small right parietal acute stroke with some evidence for old microhemorrhage/cerebral amyloid angiography changes seen on a SWAN sequence. CT angiography of the head neck were remarkable for some stenosis in the left P2 area. Echocardiogram was unremarkable although the some mild concentric left ventricular hypertrophy. He has no history of cardiac issues or dysrhythmia. Results & Data ([facility]) Vital Signs (Past 12 Hours) Vital Signs Temp Pulse Pulse Resp BP Pulse Ox 12/20/19 07:15 36.3 C L 63 20 156/84 H 96 12/20/19 03:15 36.5 C 70 22 175/97 H 97 12/20/19 00:18 71 12/19/19 23:26 36.6 C 68 22 163/87 H 92 Exam (Neuro) Physical Exam: He is awake and alert. He seems somewhat asthenic but is pleasant and cooperative. Extraocular eye muscles are intact without nystagmus. He does not seem to have any visual field deficits. There is a facial droop on the left and does not move with voluntary smile compared to the right which is normal. Tongue is midline. He cannot move the left upper extremity ( 0/5) proximally or distally. He has small movements in the toes and at the hip and the left leg (1/5). The right arm and leg are 5/5 diffusely. Tone is decreased on the left. Toes are upgoing on plantar stimulation on the left. He has good sensation on the left. PG Care Time/CCT Total # of Minutes Spent Total Time Spent with Patient: Total time spent is greater than 50% in coordination of care (as documented) at patient's floor/unit and/or counseling patient: Coding Level of Care Code 63986 Subseq Hosp Care Lvl 3 Diagnoses Acute CVA (cerebrovascular accident) I63.9 Acute left hemiparesis G81.94 Hypertensive emergency I16.1 Cerebral amyloid angiopathy E85.4; I68.0 Time Spent (min) 35
--- NOTE | 2019-12-20 10:15 | Hospitalist Progress Note ---
Date of Service December 20, 2019 Assessment & Plan Admission and Anticipated Discharge Date Admission Date: December 13, 2019 Left-sided muscle weakness: Mr. Farrukh Mancia is a 69 y/o male with past medical hx. of HTN, DM2, CKD stage III, BPH, Forgetfulness, HLD, sleep apnea who presented to [facility] ED with complaints of left arm weakness. Physical Exam findings with left sided weakness. no sensory deficits, in the setting of HTN, HLD, and history that appears to support suspected poor compliance with outpatient medications from issues with memory. Patient was found to have CVA on imaging w/ imaging suggestive of CAA. Right parietal stroke, with imaging suggestive of Cerebral Amyloid Angiopathy (CAA) Imaging - Head CT - No acute intracranial abnormality. Head/Neck CTA w/ Focal moderate stenosis within the left P2 segment. Otherwise, no additional areas of stenosis, occlusion, or aneurysm identified within the [place]. No significant stenosis, occlusion, or dissection identified within the carotid or vertebral arteries. MRI Brain: 2.4 x 1.6 cm acute infarct within the subcortical white matter of the right frontoparietal region involving the posterior right centrum semiovale. Numerous foci of susceptibility artifact on the [place] sequence. These suggest old microbleeds or amyloid deposition. - Stroke admit orders utilized per protocols/neuro checks/nursing stroke protocols - Swallowing studies with findings of aspiration of thin liquids, Speech evaluated and placed on nectar thick and minced moist - Neurology consulted: suggestive imaging of CAA, will not be initiating high dose statin due to this - LP obtained to evaluated for inflammation/leukoencephalopathy found to be reassuring w/ clear, pale paco fluid, xanthochromic, protein 105, Glucose 71. pending: Lyme and VDRL - Per neurology, "Antiplatelet: ASA 81mg po daily (given dx of CAA, has an increased risk of microhemorrhages and lobar hemorrhages, there is about a nickel chance of him having an ischemic versus hemorrhagic stroke on aspirin, hence should continue aspirin 81 mg daily unless he does have an ICH in the future)" - continue B12 1000mcg daily - Follow up in neurology clinic in 6-8 weeks HTN - blood pressure 234/133 in the ER, given Hydralazine, Labetolol, and lisinopril in the ER - Transitioned to normotensive goal, although appears to be resistant to attempt at control, in evaluating secondary causes of hypertension patient had a duplex of the renal arteries and this did not show any stenosis - patient does have sleep apnea and has not used CPAP while hospitalized - SBP has been running 150's - 170's - Hydralazine available for systolic BP > 200 diastolic > 120 - MAP goal 100 - continue lisinopril 40 mg daily - continue Hydralazine Q12H for now. consider d/c if amlodipine more effective. - increased Coreg - added Amlodipine 5 mg QAM Sleep apnea - To encourage compliance as outpatient. - Will help with BP control as well. JOSE on CKD - patient's Cr. currently 1.[address] - Dominant nodule on the left measures 3.6 cm. - Follow-up nonemergent thyroid ultrasound can be used for further evaluation. Urinary retention/incontinence - Patient had a Arroyo placed at admission, there were concerns for safety given poor judgement, as well as concern for incontinence w/ decreased sensation and ability to move. - cath bag with grossly bloody urine today - transitioned to a condom cath DVT ppx: heparin SQ FENGI: nectar thick, nss ivf Code: Full code Review of Systems Review of Systems: Constitutional: denies fevers, chills Cardiac: denies chest pain, palpitations Pulm: admits cough, denies shortness of breath Neuro: denies headache Physical Exam Physical Exam: Constitutional - no acute distress Eyes - EOM intact bilaterally ENMT - external ear and nose normal, oropharynx normal Neck - normal visual inspection Respiratory - normal respiratory effort, lungs clear to auscultation Cardiovascular - RRR, no murmur, no edema Gastrointestinal (Abdomen) - normal bowel sounds, soft, nontender, no hepatosplenomegaly Skin - no rashes, warm and dry Neurologic: - no movement w/ left arm - left leg, able to wiggle toe and plantarflex, intact sensation to light touch - left sided facial droop - sensation intact bilaterally in the face Results & Data Results & Data ([facility]) Vital Signs (Past 12 Hours) Vital Signs Temp Pulse Pulse Resp BP Pulse Ox 12/20/19 07:15 36.3 C L 63 20 156/84 H 96 12/20/19 03:15 36.5 C 70 22 175/97 H 97 12/20/19 00:18 71 12/19/19 23:26 36.6 C 68 22 163/87 H 92 CBC Results Results Complete Blood Count Results: RBC 4.61 M/uL (4.7-6.1) L 12/20/19 WBC 6.24 K/uL (4.8-10.8) 12/20/19 Hgb 15.2 g/dL (14.0-18.0) 12/20/19 Hct 43.4 % (42-52) 12/20/19 Plt Count 148 K/uL (130-400) 12/20/19 Chemistry (BMP) Results BMP Results: Sodium 142 mmol/L (136-145) 12/20/19 Potassium 3.6 mmol/L (3.5-5.1) 12/20/19 Chloride 110 mmol/L (98-107) H 12/20/19 BUN 27 mg/dl (7-18) H 12/20/19 Creatinine 1.65 mg/dl (0.6-1.4) H 12/20/19 Glucose 108 mg/dl (70-99) H 12/20/19
--- NOTE | 2019-12-20 15:21 | Discharge Summary ---
Date of Service December 20, 2019 Admission HPI Per Admitting Provider Mr. Farrukh Mancia is a 69 y/o male with past medical hx of HTN, DM2(not currently requiring treatment), CKD 3, BPH, Forgetfulness, HLD, sleep apnea who presented to [facility] ED with complaints of left arm weakness. Symptom onset was around 3pm yesterday or about 30 hours ago. He notes onset of left arm weakness, expressive dysphasia, difficulty swallowing/handling secretions because of left sided facial weakness. He notes slurred speech and difficulty articulating words. He denies any numbness. He denies any recent head trauma and is not on anti-coagulants. He reports he takes ASA daily but did not take it today. He notes symptoms have been persistent. 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 He denies any visual changes. No cough, shortness of breath, chest pain, fever, chills, or recent illness. He notes he has been wearing his CPAP. He did have a fall onto his buttocks without significant injury at home which he noted was not fall due to weakness but to rushing to the restroom. In the ED, he was found to be Hypertensive 234/133 on presentation, treated with Hydralazine 50mg PO, Labetalol 5mg IV x1, Lisinopril 40mg PO. Labs significant for K 3.3. Otherwise labs unremarkable. He had a Head CT, Head/Neck CTA. He does follow with [facility] Neuro for cognitive forgetfulness and was scheduled to have outpatient MRI later this week he notes. His records indicate he is supposed to be on Atorvastatin 40mg from last PCP note, but this medication is not on his current med list. Admission Exam Per Admitting Provider Constitutional: WD/WN, vitals as above cooperative and comfortable; no acute distress and no altered mental status Eyes: PERRL, conjunctivae normal, anicteric sclerae EOM intact bilaterally ENMT: Ears: no external ear abnormality Mouth: no drooling Neck: normal visual inspection and trachea midline Respiratory: normal respiratory effort, lungs clear to auscultation Cardiovascular: RRR, no murmur, no edema Gastrointestinal (Abdomen): Inspection/Auscultation: normal bowel sounds Percussion/Palpation: abdomen soft; abdomen nontender, no guarding and abdomen not rigid Musculoskeletal: Head/Neck/Chest: normocephalic and head atraumatic Skin: no rashes, warm and dry Neurologic: moves all extremities, + focal motor deficit (left arm and left leg) and awake Speech / Cognition: + abnormal speech (speech slurred) Cranial Nerves: EOM intact bilaterally and able to elevate shoulders bilaterally (maybe some mild leftsided weakness); + tongue not midline (protrudes left) Coordination: + abnormal [id number]-[id number]-tiik test (left finger abnormal) left foot weak to plantar flexion; left arm weak to flex/ext/hand material chaser; left sided facial weakness that spares the forehead; no sensory deficits. Psychiatric: Orientation: alert and oriented x 3 Principal Diagnosis right parietal stroke Discharge Exam Constitutional well developed and well nourished; no acute distress Eyes PERRL, conjunctivae normal, anicteric sclerae EOM intact bilaterally ENMT external ear and nose normal, oropharynx normal Neck normal visual inspection Respiratory normal respiratory effort, lungs clear to auscultation Cardiovascular RRR, no murmur, no edema Gastrointestinal (Abdomen) normal bowel sounds, soft, nontender, no hepatosplenomegaly Musculoskeletal - absent movement on the right side, able to wiggle toe and plantarflex - sensation intact to upper and lower extremity Skin no rashes, warm and dry Neurologic CN's II-XI intact bilaterally (- except for right facial droop) Discharge Data Allergies Allergy/AdvReac Type Severity Reaction Status Date / Time No Known Allergies Allergy Verified 12/13/19 20:04 Consultations 12/13/19 20:30 ED Decision to Admit Stat 12/13/19 23:25 Consult Case Management - Discharge Planning Routine Consult Neurology Routine 12/16/19 14:48 Consult Case Management - Discharge Planning Routine Ordered Studies 12/13/19 19:11 CT angio head w con Stat CT angio neck with con Stat CT head/brain wo con Stat 12/14/19 00:05 MR brain SWAN wo/w con Routine 12/16/19 07:00 FL lumbar puncture diagnostic Routine 12/16/19 11:30 FL video swallow Routine 12/17/19 13:40 US duplex renal artery Routine 12/18/19 08:45 CT Brain [CT head/brain wo con] Urgent Hospital Course (1) Left-sided muscle weakness: Mr. Farrukh Mancia is a 69 y/o male with past medical hx. of HTN, DM2, CKD stage III, BPH, Forgetfulness, HLD, sleep apnea who presented to [facility] ED with complaints of left arm weakness. Physical Exam findings with left sided weakness. no sensory deficits, in the setting of HTN, HLD, and history that appears to support suspected poor compliance with outpatient medications from issues with memory. Patient was found to have CVA on imaging as well as CAA. Right parietal stroke - thrombotic from long standing uncontrolled HTN Imaging - Head CT - No acute intracranial abnormality. - Head/Neck CTA w/ Focal moderate stenosis within the left P2 segment. Otherwise, no additional areas of stenosis, occlusion, or aneurysm identified within the benton of Romero. No significant stenosis, occlusion, or dissection identified within the carotid or vertebral arteries. - MRI Brain: 1. 2.4 x 1.6 cm acute infarct within the subcortical white matter of the right frontoparietal region involving the posterior right centrum semiovale. No acute hemorrhage. No mass effect. 2. Numerous foci of susceptibility artifact on the [place] sequence. These suggest old microbleeds or amyloid deposition. - Swallowing studies with findings of aspiration of thin liquids - Speech evaluated and placed on nectar thick and minced moist - Neurology consulted - LP w/ clear, pale paco fluid, xanthochromic, protein 105, Glucose 71. pending: Lyme and VDRL - Per neurology, "Antiplatelet: ASA 81mg po daily, low dose statin. - continue B12 1000mcg daily - discharged to rehab facility. - Follow up in neurology clinic in 6-8 weeks Concern of Cerebral amyloid angiopathy - as noted on MRI findings - further evaluation as outpatient - Per neurology on day of discharge - less likely. changes could be sec to hypertensive injury. ok to add low dose statin. HTN - blood pressure 234/133 in the ER, given Hydralazine, Labetolol, and lisinopril in the ER - Transitioned to normotensive goal, although appears to be resistant to attempt at control, in evaluating secondary causes of hypertension patient had a duplex of the renal arteries and this did not show any stenosis - patient does have sleep apnea and has not used CPAP while hospitalized - SBP has been running 150's - 170's - continued lisinopril 40 mg daily - continued Hydralazine Q12H - increased Coreg - added Amlodipine 5 mg QAM JOSE on CKD - patient's Cr. currently 1.65 Thyroid nodule - Multinodular on CT. - Dominant nodule on the left measures 3.6 cm. - Follow-up nonemergent thyroid ultrasound can be used for further evaluation. Urinary retention - Patient had a Arroyo placed at admission, there were concerns for safety given poor judgement, as well as concern for incontinence w/ decreased sensation and ability to move. - transitioned to a condom cath later due to concern of bleeding from injury. to be evaluated at rehab facility. Total Time Total Time Spent Total Time Spent (In Minutes): see attending attestation Discharge Plan Discharge Items Patient Disposition: Transfer Inpatient Rehab Fac Reason For Visit: LEFT SIDED WEAKNESS,CVA,HTN EMERGENCY Discharge Diagnosis: right parietal stroke Activity: Per Instructions section Non-emergency contact: Primary Care Provider and Neurologist Call non-emergency contact if: your symptoms worsen Follow-up/Referrals: Katya Otto MD [Primary Care Provider] - Diet: Carb Consistent or DM2 Addtl Attending Provider Instructions: December 13, 2019 Left-sided muscle weakness: Mr. Farrukh Mancia is a 69 y/o male with past medical hx. of HTN, DM2, CKD stage III, BPH, Forgetfulness, HLD, sleep apnea who presented to [facility] ED with complaints of left arm weakness. Physical Exam findings with left sided weakness. no sensory deficits, in the setting of HTN, HLD, and history that appears to support suspected poor compliance with outpatient medications from issues with memory. Patient was found to have CVA on imaging as well as findings suggestive of CAA. Right parietal stroke, with imaging suggestive of Cerebral Amyloid Angiopathy (CAA) Imaging - Head CT - No acute intracranial abnormality. Head/Neck CTA w/ Focal moderate stenosis within the left P2 segment. Otherwise, no additional areas of stenosis, occlusion, or aneurysm identified within the benton of Romero. No significant stenosis, occlusion, or dissection identified within the carotid or vertebral arteries. MRI Brain: 2.4 x 1.6 cm acute infarct within the subcortical white matter of the right frontoparietal region involving the posterior right centrum semiovale. Numerous foci of susceptibility artifact on the [place] sequence. These suggest old microbleeds or amyloid deposition. - Stroke admit orders utilized per protocols/neuro checks/nursing stroke protocols - Swallowing studies with findings of aspiration of thin liquids, Speech evaluated and placed on nectar thick and minced moist - Neurology consulted: suggestive imaging of CAA, will not be initiating high dose statin due to this - LP obtained to evaluated for inflammation/leukoencephalopathy found to be marizol ssuring w/ clear, pale paco fluid, xanthochromic, protein 105, Glucose 71. pending: Lyme and VDRL - Per neurology, "Antiplatelet: ASA 81mg po daily (given dx of CAA, has an i ncreased risk of microhemorrhages and lobar hemorrhages, there is about a nickel chance of him having an ischemic versus hemorrhagic stroke on aspirin, hence should continue aspirin 81 mg daily unless he does have an ICH in the future)" - continue B12 1000mcg daily - Follow up in neurology clinic in 6-8 weeks HTN - Transitioned to normotensive goal, although appears to be resistant to attempt at control, in evaluating secondary causes of hypertension patient had a duplex of the renal arteries and this did not show any stenosis - patient does have sleep apnea and has not used CPAP while hospitalized - SBP has been running 150's - 170's - Hydralazine available for systolic BP > 200 diastolic > 120 - MAP goal 100 - continue lisinopril 40 mg daily - continue Hydralazine Q12H for now. consider d/c if amlodipine more effective. - increased Coreg - added Amlodipine 5 mg QAM Sleep apnea - Ensure patient uses CPAP - Will help with BP control . JOSE on CKD - patient's Cr. currently 1.[address] - Dominant nodule on the left measures 3.6 cm. - Follow-up nonemergent thyroid ultrasound can be used for further evaluation. Urinary incontinence - Patient had a Arroyo placed at admission, there were concerns for safety given poor judgement, as well as concern for incontinence w/ decreased sensation and ability to move. - transitioned to a condom cath - continue to follow urinary output Pending Studies at Discharge: No Stand-Alone Forms: [facility] Sk[facility] Items Patient informed of condition?: Yes DNR: No Discharge Level of Care: Acute rehab Communicable Disease: No Discharge Prognosis: Stable Lines: Peripheral IV Urinary Catheter: Yes Medications and DC Order Prescriptions: New carvedilol 12.5 mg Tablet 12.5 mg PO BID Qty: 30 RF: 0 amlodipine [Norvasc] 5 mg Tablet 5 mg PO QAM Qty: 30 RF: 0 aspirin 81 mg Tablet,Delayed Release (Dr/Ec) 81 mg PO QAM Qty: 30 RF: 0 hydralazine 20 mg/mL Solution 10 mg IV Q4H PRN (Reason: hypertension) Qty: 30 RF: 0 atorvastatin 20 mg tablet 20 mg PO DAILY Qty: 30 RF: 0 Continued cyanocobalamin (vitamin B-12) 1,000 mcg tablet, sublingual 1,000 mcg SL DAILY Qty: 90 RF: 3 fluticasone propionate 50 mcg/actuation spray,suspension 2 sprays intranasal BID Qty: 1 RF: 0 cholecalciferol (vitamin D3) 2,000 unit capsule 2,000 units PO DAILY Qty: 30 RF: 0 hydralazine 50 mg tablet 50 mg PO Q12H Qty: 60 RF: 5 lisinopril 40 mg tablet 40 mg PO DAILY Qty: 90 RF: 3 cyanocobalamin (vitamin B-12) 1,000 mcg/mL kit 1,000 mcg SQ WK RF: 0 Discharge Orders: Discharge Order (Routine); Ordered 12/20/19 Ordered By: Tulio Naik Admission Data Admit Date/Time: 12/13/19 21:41 Attending Provider: Sobeida Ortiz Admit Provider: Brian Loomis Primary Care Provider: Katya Otto V. Other Providers: Jero Craven ; Kendy Rendon ; [facility] ; Saravanan Bruner Other Interventions: Discharge Summary Assessment (RN) Last Done: 12/20/19 14:53 DC Date/Time DO NOT enter until pt leaves facility: 12/20/19 17:26 Supervising Physician Co-Signing Physician Notes Resident Physician Supervision Note: I independently interviewed and examined the patient and verified the vivas history and physical, reviewed labs and image studies, discussed the case with the resident Dr. Naik and agree with the findings and care plan. Time spent in discharge 35 min CBC Results Results Complete Blood Count Results: RBC 4.61 M/uL (4.7-6.1) L 12/20/19 WBC 6.24 K/uL (4.8-10.8) 12/20/19 Hgb 15.2 g/dL (14.0-18.0) 12/20/19 Hct 43.4 % (42-52) 12/20/19 Plt Count 148 K/uL (130-400) 12/20/19 Results BMP Results: Sodium 142 mmol/L (136-145) 12/20/19 Potassium 3.6 mmol/L (3.5-5.1) 12/20/19 Chloride 110 mmol/L (98-107) H 12/20/19 BUN 27 mg/dl (7-18) H 12/20/19 Creatinine 1.65 mg/dl (0.6-1.4) H 12/20/19 Glucose 108 mg/dl (70-99) H 12/20/19 Resident Activity Tracking Resident Involvement: Resident Care Provided Care Provided: Adult [facility]
[2019-12-23 19:44] LABS: Lyme IgG Band Pattern CSF DNR; Lyme IgG CSF NO BANDS DETECTED; Lyme IgM Band Pattern CSF DNR; Lyme IgM CSF NO BANDS DETECTED; VDRL Qualitative CSF Nonreactive (Nonreactive)
== END 2019-12-20 17:26 | DRG 65 ==
LOC: ED 19:14 → SUATTDRO 21:41 → 2S 21:41